=== PATIENT | female | born 1990 | race Caucasian/White ===

== ENCOUNTER → 2020-09-30 | Outpatient (CLI) | payer OTHER, SELFPAY ==
[2020-09-30 18:02] LABS: HEMOGLOBIN 12.9 g/dl (12.0-15.5); MEAN CORPUSCULAR HEMOGLOBIN 25.9 pg (27.0-33.0); MEAN CORPUSCULAR HGB CONC 30.7 g/dl (32.0-36.5); MEAN CORPUSCULAR VOLUME 84.3 fl (80.0-96.0); PLATELET COUNT, AUTOMATED 169 10^3/uL (150-450); RED BLOOD COUNT 4.98 10^6/uL (4.00-5.40); WHITE BLOOD COUNT 8.6 10^3/uL (4.0-10.0)
[2020-09-30 18:03] LABS: BASO % 0.4 % (0.0-1.0); EOS % 0.2 % (0.0-3.0); HEMATOCRIT 42.3 % (36.0-47.0); HEMOGLOBIN 13.4 g/dl (12.0-15.5); LYMPH # 2.9 10^3/uL (1.5-5.0); LYMPH % 34.6 % (24.0-44.0); MEAN CORPUSCULAR HGB CONC 31.7 g/dl (32.0-36.5); MEAN CORPUSCULAR VOLUME 85.1 fl (80.0-96.0); MONO # 0.4 10^3/uL (0.0-0.8); MONO % 4.8 % (0.0-5.0); NEUTROPHILS # 5.1 10^3/uL (1.5-8.5); NEUTROPHILS % 59.8 % (36.0-66.0); PLATELET COUNT, AUTOMATED 169 10^3/uL (150-450); RED BLOOD COUNT 4.97 10^6/uL (4.00-5.40); WHITE BLOOD COUNT 8.5 10^3/uL (4.0-10.0)
[2020-09-30 18:19] LABS: ALBUMIN 4.2 GM/DL (3.2-5.2); ALT/SGPT 41 U/L (12-78); BILIRUBIN,TOTAL 0.4 MG/DL (0.2-1.0); BLOOD UREA NITROGEN 14 MG/DL (7-18); CALCIUM LEVEL 8.5 MG/DL (8.5-10.1); CARBON DIOXIDE LEVEL 28 MEQ/L (21-32); CHLORIDE LEVEL 103 MEQ/L (98-107); CREATININE FOR GFR 1.11 MG/DL (0.55-1.30); GLOMERULAR FILTRATION RATE > 60.0 (>60); GLUCOSE, FASTING 87 MG/DL (70-100); SODIUM LEVEL 137 MEQ/L (136-145); TOTAL PROTEIN 7.7 GM/DL (6.4-8.2)
[2020-09-30 18:40] LABS: HEPATITIS B SURFACE ANTIGEN NEGATIVE (NEGATIVE)
[2020-09-30 18:50] LABS: AMORPHOUS SEDIMENT MODERATE (NEGATIVE); APPEARANCE, URINE TURBID (CLEAR); BACTERIA, URINE AUTO 1+ (NEGATIVE); BILIRUBIN, URINE AUTO NEGATIVE (NEGATIVE); BLOOD, URINE BLOOD 3+ (NEGATIVE); GLUCOSE, URINE (UA) AUTO NEGATIVE (NEGATIVE); KETONE, URINE AUTO TRACE mg/dL (NEGATIVE); LEUKOCYTE ESTERASE, URINE AUTO TRACE (NEGATIVE); MUCUS, URINE MODERATE (NEGATIVE); NITRITE, URINE AUTO POSITIVE (NEGATIVE); PROTEIN, URINE AUTO 1+ mg/dL (NEGATIVE); RBC, URINE AUTO 64 /HPF (0-3); SQUAMOUS EPITHELIAL CELL UR AU 0 /HPF (0-6); UROBILINOGEN, URINE AUTO 0.2 mg/dL (0.0-2.0); WBC, URINE AUTO 0 /HPF (0-3)
[2020-09-30 18:52] LABS: COLOR, URINE YELLOW (YELLOW)
[2020-09-30 19:08] LABS: HIV 1&2 SCREEN CENTAUR NEGATIVE (NEGATIVE)
[2020-09-30 19:21] LABS: HEPATITIS C VIRUS ABY INDEX > 11.0 INDEX (<0.8)
== END ==
LOC: M PLALAB 13:47
PROVIDERS: ATTEND Family Medicine
DX: Z02.2 Encounter for examination for admission to residential institution (principal); F11.10 Opioid abuse, uncomplicated

== ENCOUNTER → 2020-12-26 | Outpatient (CLI) | payer OTHER ==
--- NOTE | 2020-12-26 16:39 | REPMRS ---
Patient History The patient states she has not had a clinical breast exam in over a year. Family history of breast cancer at age 30 in mother, breast cancer at age 23 in maternal grandmother, breast cancer at age 45 in maternal aunt. No Hormone Replacement Therapy Digital Woman Screen Mammo: December 26, 2020 - Exam #: [id number] Bilateral MLO, CC, and XCCL view(s) were taken. Technologist: Lilia Lindo, Technologist No prior studies available for comparison. FINDINGS: The breast tissue is heterogeneously dense. This may lower the sensitivity of mammography. The Volpara volumetric breast density category is: C. There is a moderate amount of heterogeneously dense fibroglandular tissue which is fairly symmetric. There is no interval development of dominant mass, architectural distortion, or grouped microcalcification typical of malignancy. There has been no change in the appearance of the mammogram from the prior studies. 3-D tomosynthesis shows no additional findings. Assessment: BI-RADS/ACR category 1 mammogram. Negative Mammogram. Recommendation Breast MRI of both breasts in 6 months. Routine screening mammogram of both breasts in 1 year (for women over age 40). This patient's [facility] Lifetime Breast Cancer RIsk is estimated at 48.3 %. Annual screening Breast MRI scanniing is recommended for patient's whose lifetime risk assessment is over 20%. This mammogram was interpreted with the aid of an FDA-approved computer-aided dectection system. Electronically Signed By: Abhijeet Rodriguez MD 12/26/20 5709
== END ==
LOC: M WHC 13:56
PROVIDERS: ATTEND Physician Assistant Medical
DX: Z12.31 Encounter for screening mammogram for malignant neoplasm of breast (principal); Z80.3 Family history of malignant neoplasm of breast

== ENCOUNTER → 2021-01-03 | Outpatient (CLI) | payer OTHER ==
[2021-01-03 10:03] LABS: APPEARANCE, URINE CLEAR (CLEAR); BACTERIA, URINE AUTO NEGATIVE (NEGATIVE); BILIRUBIN, URINE AUTO NEGATIVE (NEGATIVE); BLOOD, URINE BLOOD NEGATIVE (NEGATIVE); COLOR, URINE YELLOW (YELLOW); GLUCOSE, URINE (UA) AUTO NEGATIVE (NEGATIVE); KETONE, URINE AUTO NEGATIVE (NEGATIVE); LEUKOCYTE ESTERASE, URINE AUTO TRACE (NEGATIVE); MUCUS, URINE SMALL (NEGATIVE); NITRITE, URINE AUTO POSITIVE (NEGATIVE); PROTEIN, URINE AUTO NEGATIVE (NEGATIVE); RBC, URINE AUTO 2 /HPF (0-3); SPECIFIC GRAVITY URINE AUTO 1.021 (1.002-1.035); SQUAMOUS EPITHELIAL CELL UR AU 0 /HPF (0-6); UROBILINOGEN, URINE AUTO 0.2 mg/dL (0.0-2.0); WBC, URINE AUTO 1 /HPF (0-3)
[2021-01-03 10:12] LABS: BASO % 0.7 % (0.0-1.0); EOS # 0.2 10^3/uL (0.0-0.5); EOS % 2.7 % (0.0-3.0); HEMATOCRIT 36.9 % (36.0-47.0); HEMOGLOBIN 11.6 g/dl (12.0-15.5); LYMPH # 2.2 10^3/uL (1.5-5.0); LYMPH % 37.5 % (24.0-44.0); MEAN CORPUSCULAR HEMOGLOBIN 26.9 pg (27.0-33.0); MEAN CORPUSCULAR HGB CONC 31.4 g/dl (32.0-36.5); MEAN CORPUSCULAR VOLUME 85.4 fl (80.0-96.0); MONO # 0.4 10^3/uL (0.0-0.8); MONO % 6.5 % (0.0-5.0); NEUTROPHILS # 3.1 10^3/uL (1.5-8.5); NEUTROPHILS % 52.3 % (36.0-66.0); PLATELET COUNT, AUTOMATED 205 10^3/uL (150-450); RED BLOOD COUNT 4.32 10^6/uL (4.00-5.40); WHITE BLOOD COUNT 5.8 10^3/uL (4.0-10.0)
[2021-01-03 10:26] LABS: ALBUMIN 3.7 GM/DL (3.2-5.2); ALT/SGPT 150 U/L (12-78); BILIRUBIN,TOTAL 0.2 MG/DL (0.2-1.0); BLOOD UREA NITROGEN 23 MG/DL (7-18); CALCIUM LEVEL 9.1 MG/DL (8.5-10.1); CARBON DIOXIDE LEVEL 29 MEQ/L (21-32); CHLORIDE LEVEL 102 MEQ/L (98-107); GLOMERULAR FILTRATION RATE > 60.0 (>60); GLUCOSE, FASTING 98 MG/DL (70-100); POTASSIUM SERUM 4.7 MEQ/L (3.5-5.1); SODIUM LEVEL 138 MEQ/L (136-145); TOTAL PROTEIN 7.1 GM/DL (6.4-8.2)
[2021-01-03 12:05] LABS: HEPATITIS B SURFACE ANTIGEN NEGATIVE (NEGATIVE)
[2021-01-03 12:33] LABS: HEPATITIS B CORE ANTIBODY IGM NEGATIVE (NEGATIVE)
[2021-01-03 12:35] LABS: HEPATITIS A ANTIBODY IGM NEGATIVE (NEGATIVE)
[2021-01-03 12:49] LABS: HEPATITIS C VIRUS ABY INDEX > 11.0 INDEX (<0.8)
== END ==
LOC: M LAB 09:15
PROVIDERS: ATTEND Physician Assistant Medical
DX: Z02.2 Encounter for examination for admission to residential institution (principal)

== ENCOUNTER 2021-01-26 13:08 | Emergency (ER) | payer OTHER ==
[~2021-01-26] VITALS: Ht 165.1 cm; Wt 94.5 kg
--- OUTSIDE RECORDS SUMMARY | 2021-01-26 13:16 | CCD ---
Author Organization Unknown Address [address] [place] [address] Phone [phone] Care Team Providers Care Market Editor Name Role Phone José Miguel Dior Unavailable Unavailable Allergies None recorded. Medications Name Status Start Date Stop Date amoxicillin 500 mg capsule Active Not a vailable cephalexin 500 mg capsule Active Not av ailable clindamycin HCl 150 mg capsule Active N ot available doxycycline hyclate 100 mg capsule Active Not available escitalopram 10 mg tablet Active Not av ailable ibuprofen 800 mg tablet Active Not avai lable Lidocaine Viscous 2 % mucosal solution Active Not available nicotine (polacrilex) 4 mg gum Active N ot available nicotine 21 mg/24 hr daily transdermal patch Active Not available ondansetron HCl 4 mg tablet Active Not available prazosin 1 mg capsule Active Not availa ble prednisone 20 mg tablet Active Not avai lable prochlorperazine maleate 5 mg tablet Active Not available Problems None recorded. Procedures None recorded. Results Lab Results None recorded. Past Encounters 11/30/2020 SARS-CoV-2 Vaccination José Miguel Dior MD: [address] [place] [address], Ph. Social History None recorded. Vaccine List Vaccine Type COVID-19, mRNA, LNP-S, PF, 100 mcg/0.5 m L dose 11/30/20200.5 mL Plan of Care Reminders Provider Appointments None recorded. Lab None recorded. Referral None recorded. Procedures None recorded. Surgeries None recorded. Imaging None recorded. Vitals None recorded.
--- OUTSIDE RECORDS SUMMARY | 2021-01-26 13:16 | CCD | Continuity of Care Document ---
Author Author Maria Elena CISNEROS Organization Unknown Address [address] [address] Phone [phone] Care Team Providers Care Licsw Name Role Phone JUNIOR CISNEROS AUTM [phone] Social History Type Date Description Comments Sex Unknown Results Test Acquired Date Facility Test Result H/L Range Note Ua Routine 01/03/[address] [address] [phone] Appearance, Urine CLEAR Normal Clear Color, Urine YELLOW Normal Yellow PH,Urine 5.0 units Normal 5.0-9.0 Specific [place] Urine Auto 1.021 Normal 1.002-1.035 Protein, Urine Auto NEGATIVE mg/dL Normal Negative Glucose, Urine (Ua) Auto NEGATIVE mg/dL Normal Negative Ketone, Urine Auto NEGATIVE mg/dL Normal Negative Urobilinogen, Urine Auto 0.2 mg/dL Normal 0.0-2.0 Bilirubin, Urine Auto NEGATIVE Normal Negative Nitrite, Urine Auto POSITIVE Normal Negative Leukocyte Esterase, Urine Auto TRACE High Negative Blood, Urine Blood NEGATIVE Normal Negative WBC, Urine Auto 1 /HPF Normal 0-3 RBC, Urine Auto 2 /HPF Normal 0-3 Bacteria, Urine Auto NEGATIVE Normal Negative Squamous Epithelial Cell Ur AU 0 /HPF Normal 0-6 Mucus, Urine SMALL Normal Negative Hyaline Cast, Urine Auto 0 /LPF Normal 0-1 CBC With Differential 01/03/[address] [address] [phone] White Blood Count 5.8 10 Normal 4.0-10.0 Red Blood Count 4.32 10 Normal 4.00-5.40 Hemoglobin 11.6 g/dL Low 12.0-15.5 Hematocrit 36.9 % Normal 36.0-47.0 Mean Corpuscular Volume 85.4 fl Normal 80.0-96.0 Mean Corpuscular Hemoglobin 26.9 pg Low 27.0-33.0 Mean Corpuscular HGB Conc 31.4 g/dL Low 32.0-36.5 Red Cell Distribution Width 14.0 % Normal 11.5-14.5 Platelet Count, Automated 205 10 Normal 150-450 Neutrophils % 52.3 % Normal 36.0-66.0 Lymph % 37.5 % Normal 24.0-44.0 [place] % 6.5 % High 0.0-5.0 Eos % 2.7 % Normal 0.0-3.0 Baso % 0.7 % Normal 0.0-1.0 Immature Granulocyte % 0.3 % Normal 0-3.0 Nucleated Red Blood Cell % 0.0 % Normal 0-0 Neutrophils # 3.1 10 Normal 1.5-8.5 Lymph # 2.2 10 Normal 1.5-5.0 [place] # 0.4 10 Normal 0.0-0.8 Eos # 0.2 10 Normal 0.0-0.5 Baso # 0.0 10 Normal 0.0-0.2 Comprehensive Metabolic Profil 01/03/[address] [address] [phone] Glucose, Fasting 98 mg/dL Normal 70-100 Blood Urea Nitrogen 23 mg/dL High 7-18 Creatinine For GFR 0.90 mg/dL Normal 0.55-1.30 Glomerular Filtration Rate > 60.0 Normal >60 1 Sodium Level 138 mEq/L Normal 136-145 Potassium Serum 4.7 mEq/L Normal 3.5-5.1 Chloride Level 102 mEq/L Normal 98-107 Carbon Dioxide Level 29 mEq/L Normal 21-32 Anion Gap 7 mEq/L Low 8-16 Calcium Level 9.1 mg/dL Normal 8.5-10.1 Ast/Sgot 84 U/L High 7-37 Alt/SGPT 150 U/L High 12-78 Alkaline Phosphatase 151 U/L High 45-117 Bilirubin,Total 0.2 mg/dL Normal 0.2-1.0 Total Protein 7.1 GM/DL Normal 6.4-8.2 Albumin 3.7 GM/DL Normal 3.2-5.2 Albumin/Globulin Ratio 1.1 Low 1.2-2.2 Hepatitis Profile 01/03/2021 [place] 1940539 [phone] Hepatitis C Virus Lilly Index > 11.0 INDEX High <0 .8 2 Hepatitis B Surface Antigen NEGATIVE Normal Negative Hepatitis B Core Antibody Igm NEGATIVE Normal Negative Hepatitis A Antibody Igm NEGATIVE Normal Negative 1 Units are mL/min/1.73 m2 Chronic Kidney Disease Staging per NKF: Stage I & II GFR >=60 Normal to Mildly Decreased Stage III GFR 30-59 Moderately Decreased Stage IV GFR 15-29 Severely Decreased Stage V GFR <15 Very Little GFR Left ESRD GFR <15 on MARKET RESEARCH SENIOR PROJECT MANAGER 2 This screening test for Hepa titis C Virus was above the 1.0 cutoff index value and will be sent to reference lab Laboratory [employer] [facility], [address] [place] [address] [place]. Jose Anaya. [phone] for Hep C RNA ROSA testing to confirm or exclude active Hepatitis C Virus infection. Screening test Positive samples with high index values (>11.0) usually (95%) confirm Positive, but <5 of every 100 samples with this result might be a false positive and Hep C RNA ROSA testing will aid in patient management. Encounters Type Date Location Provider Dx Diagnosis Office Visit 12/27/2020 10:30a [facility] ERICK Roca K29.00 Acute gastritis without blee isra J30.9 Allergic rhinitis, unspecifi ed F32.9 Major depressive disorder, s cherie episode, unspecified Office Visit 12/14/2020 2:00p [facility] ERICK Roca K29.00 Acute gastritis without blee ding F32.9 Major depressive disorder, s cherie episode, unspecified Office Visit 11/08/2020 12:00p [facility] ERICK Roca B37.3 Candidiasis of vulva and vag filiberto F32.9 Major depressive disorder, s cherie episode, unspecified Office Visit 11/03/2020 3:00p [facility] ERICK Roca L20.9 Atopic dermatitis, unspecifi ed F32.9 Major depressive disorder, s cherie episode, unspecified Assessments Date Code Description Provider 12/27/2020 K29.00 Acute gastritis without bleeding Junior Haywardki, PA 12/27/2020 J30.9 Allergic rhinitis, unspecified F nurys Miller Rekha, PA 12/27/2020 F32.9 Major depressive disorder, singl e episode, unspecified Junior G Rekha, PA 12/14/2020 K29.00 Acute gastritis without bleeding Junior Paul Rekha, PA 12/14/2020 F32.9 Major depressive disorder, singl e episode, unspecified Junior Paul Rekha, PA 11/08/2020 B37.3 Candidiasis of vulva and vagina Junior G Rekha, PA 11/08/2020 F32.9 Major depressive disorder, singl e episode, unspecified Junior Paul Rekha, PA 11/03/2020 L20.9 Atopic dermatitis, unspecified F nurys Miller Rekha, PA 11/03/2020 F32.9 Major depressive disorder, singl e episode, unspecified Junior Palu Rekha, PA 10/28/2020 J30.9 Allergic rhinitis, unspecified F nurys Miller Rekha, PA 10/28/2020 F32.9 Major depressive disorder, singl e episode, unspecified Junior G Rekha, PA 10/28/2020 F19.20 Other psychoactive substance dep endence, uncomplicated Junior Paul Rekha, PA 09/29/2020 F32.9 Major depressive disorder, singl e episode, unspecified Junior Paul Rekha, PA 09/29/2020 F19.20 Other psychoactive substance dep endence, uncomplicated Junior Paul Rekha, PA
--- OUTSIDE RECORDS SUMMARY | 2021-01-26 13:16 | CCD ---
Continuity of Care Document (CCD) Created on: 01/06/2021 Maria Elena Everett External Reference #: [id number] : 1990 Sex: Female Author Author Maria Elena DA SILVA Organization Unknown Address [address] [address] Phone [phone] Care Team Providers Care Cut Tobacco Bulker Name Role Phone JUNIOR DA SILVA AUTM [phone] Social History Type Date Description Comments Sex Unknown Results Test Acquired Date Facility Test Result H/L Range Note Ua Routine 01/03/[address] [address] [phone] Appearance, Urine CLEAR Normal Clear Color, Urine YELLOW Normal Yellow PH,Urine 5.0 units Normal 5.0-9.0 Specific [place] Urine Auto 1.021 Normal 1.002-1.035 Protein, Urine [...] /LPF Normal 0-1 CBC With Differential 01/03/[address] [address] [phone] White Blood Count 5.8 10 Normal 4.0-10.0 [...] 36.0-66.0 Lymph % 37.5 % Normal 24.0-44.0 [place] % 6.5 % High 0.0-5.0 Eos % 2.7 % Normal 0.0-3.0 Baso % 0.7 % Normal 0.0-1.0 Immature Granulocyte % 0.3 % Normal 0-3.0 Nucleated Red Blood Cell % 0.0 % Normal 0-0 Neutrophils # 3.1 10 Normal 1.5-8.5 Lymph # 2.2 10 Normal 1.5-5.0 [place] # 0.4 10 Normal 0.0-0.8 Eos # 0.2 10 Normal 0.0-0.5 Baso # 0.0 10 Normal 0.0-0.2 Comprehensive Metabolic Profil 01/03/[address] [address] [phone] Glucose, Fasting 98 mg/dL Normal 70-100 Blood [...] Ratio 1.1 Low 1.2-2.2 Hepatitis Profile 01/03/2021 [facility] [address] [place] [address] [phone] Hepatitis C Virus Lilly Index > 11.0 INDEX High <0 .8 2 Hepatitis B Surface Antigen NEGATIVE Normal Negative Hepatitis B Core Antibody Igm NEGATIVE Normal Negative Hepatitis A Antibody Igm NEGATIVE Normal Negative Laboratory test finding 01/03/2021 [facility] [address] [place] [address] [phone] HCV Rna Leona Qualitative Positive Abnormal Negative 3 1 Units are mL/min/1.73 m2 Chronic Kidney Disease Staging per NKF: Stage I & II GFR >=60 Normal to Mildly Decreased Stage III GFR 30-59 Moderately Decreased Stage IV GFR 15-29 Severely Decreased Stage V GFR <15 Very Little GFR Left ESRD GFR <15 on RUN LEAD 2 This screening test for Hepa titis C Virus was above the 1.0 cutoff index value and will be sent to reference lab Laboratory [employer] [facility], [address] [place] [address]. Alayna Anaya.Leonardo. [id number] for Hep C RNA LEONA testing to confirm or exclude active Hepatitis C Virus infection. Screening test Positive samples with high index values (>11.0) usually (95%) confirm Positive, but <5 of every 100 samples with this result might be a false positive and Hep C RNA LEONA testing will aid in patient management. 3 Positive: HCV RNA Detected Performed at: [facility] [address] [id number] Shellfish Sorter: Juan Law MD, Phone: [phone] Encounters Type Date Location Provider Dx Diagnosis Office Visit 12/27/2020 10:30a [facility] ERICK Roca K29.00 Acute gastritis without blee ding J30.9 Allergic rhinitis, unspecifi ed F32.9 Major depressive disorder, s cherie episode, unspecified Office Visit 12/14/2020 2:00p [facility] ERICK Roca K29.00 Acute gastritis without blee ding F32.9 Major depressive disorder, s cherie episode, unspecified Office Visit 11/08/2020 12:00p [facility] ERICK Roca B37.3 Candidiasis of vulva and vag filiberto F32.9 Major depressive disorder, s cherie episode, unspecified Office Visit 11/03/2020 3:00p [facility] Ashu Da Silva, PA L20.9 Atopic dermatitis, unspecifi ed F32.9 Major depressive disorder, s cherie episode, unspecified Assessments Date Code Description Provider 12/27/2020 K29.00 Acute gastritis without bleeding Junior Da Silva, PA 12/27/2020 J30.9 Allergic rhinitis, unspecified F rediftikhar Da Silva, PA 12/27/2020 F32.9 Major depressive disorder, singl e episode, unspecified Junior Paul Da Silva, PA 12/14/2020 K29.00 Acute gastritis without bleeding Junior Da Silva, PA 12/14/2020 F32.9 Major depressive disorder, singl e episode, unspecified Junior Da Silva, PA 11/08/2020 B37.3 Candidiasis of vulva and vagina Junior Da Silva, PA 11/08/2020 F32.9 Major depressive disorder, singl e episode, unspecified Junior Paul Da Silva, PA 11/03/2020 L20.9 Atopic dermatitis, unspecified F nurys Da Silva, PA 11/03/2020 F32.9 Major depressive disorder, singl e episode, unspecified Junior Paul Da Silva, PA 10/28/2020 J30.9 Allergic rhinitis, unspecified F rediftikhar Da Silva, PA 10/28/2020 F32.9 Major depressive disorder, singl e episode, unspecified Junior G Rekha, PA 10/28/2020 F19.20 Other psychoactive substance dep endence, uncomplicated Junior Paul Da Silva, PA 09/29/2020 F32.9 Major depressive disorder, singl e episode, unspecified Junior G Rekha, PA 09/29/2020 F19.20 Other psychoactive substance dep endence, uncomplicated Junior G Rekha, PA
--- OUTSIDE RECORDS SUMMARY | 2021-01-26 13:16 | CCD ---
Continuity of Care Document (CCD) Created on: 01/17/2021 Maria Elena Everett External Reference #: [id number] : 1990 Sex: Female Author Author Maria Elena DA SILVA Organization Unknown Address [address] [address] Phone [phone] Care Team Providers Care Storm Chaser Name Role Phone JUNIOR DA SILVA AUTM [phone] Social History Type Date Description Comments Sex Unknown Results Test Acquired Date Facility Test Result H/L Range Note Ua Routine 01/03/[address] [address] [phone] Appearance, Urine CLEAR Normal Clear Color, Urine YELLOW Normal Yellow PH,Urine 5.0 units Normal 5.0-9.0 Specific [place] Urine Auto 1.021 Normal 1.002-1.035 Protein, Urine [...] /LPF Normal 0-1 CBC With Differential 01/03/[address] [address] [phone] White Blood Count 5.8 10 Normal 4.0-10.0 [...] 36.0-66.0 Lymph % 37.5 % Normal 24.0-44.0 [place] % 6.5 % High 0.0-5.0 Eos % 2.7 % Normal 0.0-3.0 Baso % 0.7 % Normal 0.0-1.0 Immature Granulocyte % 0.3 % Normal 0-3.0 Nucleated Red Blood Cell % 0.0 % Normal 0-0 Neutrophils # 3.1 10 Normal 1.5-8.5 Lymph # 2.2 10 Normal 1.5-5.0 [place] # 0.4 10 Normal 0.0-0.8 Eos # 0.2 10 Normal 0.0-0.5 Baso # 0.0 10 Normal 0.0-0.2 Comprehensive Metabolic Profil 01/03/[address] [address] [phone] Glucose, Fasting 98 mg/dL Normal 70-100 Blood [...] Ratio 1.1 Low 1.2-2.2 Hepatitis Profile 01/03/2021 [facility] [address] [place] [address] [phone] Hepatitis C Virus Lilly Index > 11.0 INDEX High <0 .8 2 Hepatitis B Surface Antigen NEGATIVE Normal Negative Hepatitis B Core Antibody Igm NEGATIVE Normal Negative Hepatitis A Antibody Igm NEGATIVE Normal Negative Laboratory test finding 01/03/2021 [facility] [address] [place] [address] [phone] HCV Rna Leona Qualitative Positive Abnormal Negative 3 1 Units are mL/min/1.73 m2 Chronic Kidney Disease Staging per NKF: Stage I & II GFR >=60 Normal to Mildly Decreased Stage III GFR 30-59 Moderately Decreased Stage IV GFR 15-29 Severely Decreased Stage V GFR <15 Very Little GFR Left ESRD GFR <15 on CAN WASHER 2 This screening test for Hepa titis C Virus was above the 1.0 cutoff index value and will be sent to reference lab Laboratory [employer] [facility], [address] [place] [address]. Héctor, Alayna.Leonardo. [id number] for Hep C RNA LEONA testing to confirm or exclude active Hepatitis C Virus infection. Screening test Positive samples with high index values (>11.0) usually (95%) confirm Positive, but <5 of every 100 samples with this result might be a false positive and Hep C RNA LEONA testing will aid in patient management. 3 Positive: HCV RNA Detected Performed at: [facility] [address] [id number] Rig Builder: Juan Law MD, Phone: [phone] Encounters Type Date Location Provider Dx Diagnosis Office Visit 01/11/2021 12:15p [facility] ERICK Roca K29.00 Acute gastritis without blee isra F32.9 Major depressive disorder, s cherie episode, unspecified Office Visit 01/03/2021 12:15p [facility] ERICK Roca N39.0 Urinary tract infection, sit e not specified J06.9 Acute upper respiratory infe ction, unspecified Z11.52 Encounter for screening for Covid-19 Office Visit [facility]2020 [facility] episode, unspecified Assessments Date Code Description Provider 01/11/2021 K29.00 Acute gastritis without bleeding ERICK Solares 01/11/2021 F32.9 Major depressive disorder, singl e episode, unspecified Junior Da Silva, ERICK 01/03/2021 N39.0 Urinary tract infection, site no t specified ERICK Solares 01/03/2021 J06.9 Acute upper respiratory infectio n, unspecified ERICK Solares 01/03/2021 Z11.52 Encounter for screening for Covi d-19 Junior Da Silva, ERICK 12/27/2020 K29.00 Acute gastritis without bleeding ERICK Solares 12/27/2020 J30.9 Allergic rhinitis, unspecified F rediftikhar Da Silva, PA 12/27/2020 F32.9 Major depressive disorder, singl e episode, unspecified ERICK Solares 12/14/2020 K29.00 Acute gastritis without bleeding Junior Da Silva, ERICK 12/14/2020 F32.9 Major depressive disorder, singl e episode, unspecified Junior Da Silva PA 11/08/2020 B37.3 Candidiasis of vulva and vagina ERICK Solares 11/08/2020 F32.9 Major depressive disorder, singl e episode, unspecified Junior Da Silva, PA 11/03/2020 L20.9 Atopic dermatitis, unspecified F nurys Da Silva, PA 11/03/2020 F32.9 Major depressive disorder, singl e episode, unspecified Junior Da Silva, PA 10/28/2020 J30.9 Allergic rhinitis, unspecified F nurys Da Silva, PA 10/28/2020 F32.9 Major depressive disorder, singl e episode, unspecified Junior Da Silva, PA 10/28/2020 F19.20 Other psychoactive substance dep endence, uncomplicated Junior Da Silva, PA 09/29/2020 F32.9 Major depressive disorder, singl e episode, unspecified Junior Da Silva, PA 09/29/2020 F19.20 Other psychoactive substance dep endence, uncomplicated Junior Da Silva, PA
--- OUTSIDE RECORDS SUMMARY | 2021-01-26 13:16 | CCD | Continuity of Care Document ---
Author Author Maria Elena DA SILVA Organization Unknown Address [address] [place] [address] [address] [place] [address] Phone [phone] Care Team Providers Care Perforating Machine Operator Name Role Phone JUNIOR DA SILVA AUTM Social History Type Date Description Comments Sex Unknown Encounters Type Date Location Provider Dx Diagnosis [facility] episode, unspecified Assessments Date Code Description Provider 12/14/2020 K29.00 Acute gastritis without bleeding ERICK Solares 12/14/2020 F32.9 Major depressive disorder, singl e episode, unspecified ERICK Solares 11/08/2020 B37.3 Candidiasis of vulva and vagina ERICK Solares 11/08/2020 F32.9 Major depressive disorder, singl e episode, unspecified ERICK Solares 11/03/2020 L20.9 Atopic dermatitis, unspecified F ERICK Gibson 11/03/2020 F32.9 Major depressive disorder, singl e episode, unspecified ERICK Solares 10/28/2020 J30.9 Allergic rhinitis, unspecified F franciscoiftikhar Miller Rekha, PA 10/28/2020 F32.9 Major depressive disorder, singl e episode, unspecified Junior Da Silva, ERICK 10/28/2020 F19.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 09/29/2020 F32.9 Major depressive disorder, singl e episode, unspecified Junior Da Silva, ERICK 09/29/2020 F19.20 Other psychoactive substance dep endence, uncomplicated Junior Da Silva PA
--- OUTSIDE RECORDS SUMMARY | 2021-01-26 13:16 | CCD | Continuity of Care Document ---
Author Author Maria Elena DA SILVA Organization Unknown Address [address] [place] [address] [address] [place] [address] Phone [phone] Care Team Providers Care Night Warehouse Selector Name Role Phone JUNIOR DA SILVA AUTM Social History Type Date Description Comments Sex Unknown Encounters Type Date Location Provider Dx Diagnosis Office Visit 12/27/2020 10:30a [facility] ERICK Roca K29.00 Acute gastritis without blee ding J30.9 Allergic rhinitis, unspecifi ed F32.9 Major depressive disorder, s cherie episode, unspecified Office Visit 12/14/2020 2:00p [facility] ERICK Roca K29.00 Acute gastritis without blee ding F32.9 Major depressive disorder, s cherie episode, unspecified Office Visit 11/08/2020 12:00p [facility] ERICK Roca B37.3 Candidiasis of vulva and vag filiberto F32.9 Major depressive disorder, s cherie episode, unspecified Office Visit 11/03/2020 3:00p [facility] ERICK Roca L20.9 Atopic dermatitis, unspecifi ed F32.9 Major depressive disorder, s cherie episode, unspecified Assessments Date Code Description Provider 12/27/2020 K29.00 Acute gastritis without bleeding ERICK Solares 12/27/2020 J30.9 Allergic rhinitis, unspecified F ERICK Gibson 12/27/2020 F32.9 Major depressive disorder, singl e [...]
--- OUTSIDE RECORDS SUMMARY | 2021-01-26 13:16 | CCD | Continuity of Care Document ---
Author Author Maria Elena DA SILVA Organization Unknown Address [address] [address] Phone [phone] Care Team Providers Care Assistant Manager Retail Name Role Phone JUNIOR DA SILVA AUTM [phone] Social History Type Date Description Comments Sex Unknown Results Test Acquired Date Facility Test Result H/L Range Note Ua Routine 01/03/[address] [address] [phone] Appearance, Urine CLEAR Normal Clear Color, Urine YELLOW Normal Yellow PH,Urine 5.0 units Normal 5.0-9.0 Specific [place] Urine Auto 1.021 Normal 1.002-1.035 Protein, Urine [...] /LPF Normal 0-1 CBC With Differential 01/03/[address] [address] [phone] White Blood Count 5.8 10 Normal 4.0-10.0 [...] 36.0-66.0 Lymph % 37.5 % Normal 24.0-44.0 [place] % 6.5 % High 0.0-5.0 Eos % 2.7 % Normal 0.0-3.0 Baso % 0.7 % Normal 0.0-1.0 Immature Granulocyte % 0.3 % Normal 0-3.0 Nucleated Red Blood Cell % 0.0 % Normal 0-0 Neutrophils # 3.1 10 Normal 1.5-8.5 Lymph # 2.2 10 Normal 1.5-5.0 [place] # 0.4 10 Normal 0.0-0.8 Eos # 0.2 10 Normal 0.0-0.5 Baso # 0.0 10 Normal 0.0-0.2 Comprehensive Metabolic Profil 01/03/[address] [address] [phone] Glucose, Fasting 98 mg/dL Normal 70-100 Blood [...] Ratio 1.1 Low 1.2-2.2 Hepatitis Profile 01/03/2021 [facility] [address] [place] [address] [phone] Hepatitis C Virus Lilly Index > 11.0 INDEX High <0 .8 2 Hepatitis B Surface Antigen NEGATIVE Normal Negative Hepatitis B Core Antibody Igm NEGATIVE Normal Negative Hepatitis A Antibody Igm NEGATIVE Normal Negative Laboratory test finding 01/03/2021 [facility] [address] [place] [address] [phone] HCV Rna Leona Qualitative Positive Abnormal Negative 3 1 Units are mL/min/1.73 m2 Chronic Kidney Disease Staging per NKF: Stage I & II GFR >=60 Normal to Mildly Decreased Stage III GFR 30-59 Moderately Decreased Stage IV GFR 15-29 Severely Decreased Stage V GFR <15 Very Little GFR Left ESRD GFR <15 on SEARCHLIGHT OPERATOR 2 This screening test for Hepa titis C Virus was above the 1.0 cutoff index value and will be sent to reference lab Laboratory [place] [facility], [address] [place] [address]. Héctor, Alayna.Leonardo. [address] for Hep C RNA LEONA testing to confirm or exclude active Hepatitis C Virus infection. Screening test Positive samples with high index values (>11.0) usually (95%) confirm Positive, but <5 of every 100 samples with this result might be a false positive and Hep C RNA LEONA testing will aid in patient management. 3 Positive: HCV RNA Detected Performed at: [facility] [id number] [address] And Former: Juan Law MD, Phone: [phone] Encounters Type Date Location Provider Dx Diagnosis Office Visit 01/03/2021 12:15p [facility] ERICK Roca N39.0 Urinary tract infection, sit e not specified J06.9 Acute upper respiratory infe ction, unspecified Z11.52 Encounter for screening for Covid-19 Office Visit 12/27/2020 10:30a [facility] 11/03/2020 3:00p [facility] ERICK Roca L20.9 Atopic dermatitis, unspecifi ed F32.9 Major depressive disorder, s cherie episode, unspecified Assessments Date Code Description Provider 01/03/2021 N39.0 Urinary tract infection, site no t specified ERICK Solares 01/03/2021 J06.9 Acute upper respiratory infectio n, unspecified ERICK Solares 01/03/2021 Z11.52 Encounter for screening for Covi d-19 ERICK Solares 12/27/2020 K29.00 Acute gastritis without bleeding Junior Da Silva, PA 12/27/2020 J30.9 Allergic rhinitis, unspecified F nurys Da Silva, PA 12/27/2020 F32.9 Major depressive disorder, singl e episode, unspecified Junior Da Silva, PA 12/14/2020 K29.00 Acute gastritis without bleeding Junior Da Silva, PA 12/14/2020 F32.9 Major depressive disorder, singl e episode, unspecified Junior Da Silva, PA 11/08/2020 B37.3 Candidiasis of vulva and vagina Junior Da Silva PA 11/08/2020 F32.9 Major depressive disorder, singl e episode, unspecified Junior Da Silva, PA 11/03/2020 L20.9 Atopic dermatitis, unspecified F nurys Da Silva, PA 11/03/2020 F32.9 Major depressive disorder, singl e episode, unspecified Junior Da Silva, PA 10/28/2020 J30.9 Allergic rhinitis, unspecified F nurys Da Silva, PA 10/28/2020 F32.9 Major depressive disorder, singl e episode, unspecified ERICK Solares 10/28/2020 F19.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
--- OUTSIDE RECORDS SUMMARY | 2021-01-26 13:16 | CCD ---
Author Organization Unknown Address [address] [place] [address] Phone [phone] Care Team Providers Care Greenhouse Staff Name Role Phone José Miguel Dior Unavailable [...] SARS-CoV-2 Vaccination José Miguel Dior MD: [address] [place] [address], Ph. Social History None recorded. Vaccine List Vaccine Type COVID-19, mRNA, LNP-S, PF, 100 mcg/0.5 m L dose 11/30/20200.5 mL Plan of Care Reminders Provider Appointments None recorded. Lab None recorded. Referral None recorded. Procedures None recorded. Surgeries None recorded. Imaging None recorded. Vitals None recorded.
--- OUTSIDE RECORDS SUMMARY | 2021-01-26 13:16 | CCD | Continuity of Care Document ---
Author Author Maria Elena CISNEROS Organization Unknown Address [address] [address] Phone [phone] Care Team Providers Care Grape Pruner Name Role Phone JUNIOR CISNEROS AUTM Social History Type Date Description Comments Sex Unknown Results Test Acquired Date Facility Test Result H/L Range Note Ua Routine 01/03/[address] [address] [phone] Appearance, Urine CLEAR Normal Clear Color, Urine YELLOW Normal Yellow PH,Urine 5.0 units Normal 5.0-9.0 Specific [place] Urine Auto 1.021 Normal 1.002-1.035 Protein, Urine [...] Normal 0-1 CBC With Differential 01/03/[address] [address] [phone] White Blood Count 5.8 10 Normal 4.0-10.0 [...] 36.0-66.0 Lymph % 37.5 % Normal 24.0-44.0 [place] % 6.5 % High 0.0-5.0 Eos % 2.7 % Normal 0.0-3.0 Baso % 0.7 % Normal 0.0-1.0 Immature Granulocyte % 0.3 % Normal 0-3.0 Nucleated Red Blood Cell % 0.0 % Normal 0-0 Neutrophils # 3.1 10 Normal 1.5-8.5 Lymph # 2.2 10 Normal 1.5-5.0 [place] # 0.4 10 Normal 0.0-0.8 Eos # 0.2 10 Normal 0.0-0.5 Baso # 0.0 10 Normal 0.0-0.2 Comprehensive Metabolic Profil 01/03/[address] [address] [phone] Glucose, Fasting 98 mg/dL Normal 70-100 Blood [...] Ratio 1.1 Low 1.2-2.2 Hepatitis Profile 01/03/2021 [place] [id number] [phone] Hepatitis C Virus Lilly Index > 11.0 [...] Little GFR Left ESRD GFR <15 on OXIDIZED FINISH PLATER 2 This screening test for Hepa titis C Virus was above the 1.0 cutoff index value and will be sent to reference lab Laboratory [place] [facility], [address] [place] [address] [place]. [place]. [id number] for Hep C RNA ROSA testing to [...] Provider Dx Diagnosis Office Visit 12/27/2020 10:30a [facility] ERICK Roca K29.00 Acute gastritis without blee isra J30.9 Allergic rhinitis, unspecifi ed F32.9 Major depressive disorder, s cherie episode, unspecified Office Visit 12/14/2020 2:00p [facility] ERICK Roca K29.00 Acute gastritis without blee ding F32.9 Major depressive disorder, s cherie episode, unspecified Office Visit 11/08/2020 12:00p [facility] ERICK Roca B37.3 Candidiasis of vulva and vag filiberto F32.9 Major depressive disorder, s cherie episode, unspecified Office Visit 11/03/2020 3:00p [facility] ERICK Roca L20.9 Atopic dermatitis, unspecifi ed F32.9 Major depressive disorder, s cherie episode, unspecified Assessments Date Code Description Provider 12/27/2020 K29.00 Acute gastritis without bleeding Junior Haywradki, PA 12/27/2020 J30.9 Allergic rhinitis, unspecified F [...] e episode, unspecified Junior Paul Rekha, PA 10/28/2020 J30.9 Allergic rhinitis, unspecified [...]
--- OUTSIDE RECORDS SUMMARY | 2021-01-26 13:16 | CCD ---
Author Organization Unknown Address [address] [place] [address] Phone [phone] Care Team Providers Care Spinning Doffer Name Role Phone José Miguel Dior Unavailable Unavailable Allergies None recorded. Medications Name Status Start Date Stop Date amoxicillin 500 mg capsule Active Not a vailable amoxicillin 500 mg tablet Active Not av ailable cefdinir 300 mg capsule Active Not avai lable cephalexin 500 mg capsule Active Not av ailable cetirizine 10 mg tablet Active Not avai lable clindamycin HCl 150 mg capsule Active N ot available doxycycline hyclate 100 mg capsule Active Not available escitalopram 10 mg tablet Active Not av ailable fluconazole 150 mg tablet Active Not av ailable ibuprofen 600 mg tablet Active Not avai lable ibuprofen 800 mg tablet Active Not avai lable Lidocaine Viscous 2 % mucosal solution Active Not available mirtazapine 15 mg tablet Active Not raffy ilable nicotine (polacrilex) 4 mg gum Active N ot available nicotine 21 mg/24 hr daily transdermal patch Active Not available nitrofurantoin monohydrate/macrocrystals 100 mg capsule Active Not available ondansetron HCl 4 mg tablet Active Not available phenazopyridine 100 mg tablet Active No t available prazosin 1 mg capsule Active Not availa ble prazosin 2 mg capsule Active Not availa ble prednisone 20 mg tablet Active Not avai lable prochlorperazine maleate 5 mg tablet Active Not available senna 8.6 mg tablet Active Not availabl e venlafaxine ER 150 mg capsule,extended release 24 hr Active Not available venlafaxine ER 75 mg capsule,extended release 24 hr Active Not available Problems None recorded. Procedures None recorded. Results Lab Results None recorded. Past Encounters 12/29/2020 SARS-CoV-2 Vaccination TAMERA Mensah-C: [address] [place] [address], Ph. 11/30/2020 SARS-CoV-2 Vaccination José Miguel Dior MD: [address] [place] [address], Ph. Social History None recorded. Vaccine List Vaccine Type COVID-19, mRNA, LNP-S, PF, 100 mcg/0.5 m L dose .5 mL .5 mL Plan of Care Reminders Provider Appointments None recorded. Lab None recorded. Referral None recorded. Procedures None recorded. Surgeries None recorded. Imaging None recorded. Vitals None recorded.
--- OUTSIDE RECORDS SUMMARY | 2021-01-26 13:17 | CCD ---
Author Author [facility] Organization [facility] Address Unknown Phone Unavailable Care Team Providers Care French Pastry Cook Name Role Phone Lee, Osseo Nathalie Unavailable Unavailable Lee, Osseo Nathalie Unavailable Unavailable Lee, Osseo Nathalie Unavailable Unavailable Lee, Osseo Nathalie Unavailable Unavailable Lee, Osseo Nathalie Unavailable Unavailable Lee, Osseo Nathalie Unavailable Unavailable Lee, Osseo Nathalie Unavailable Unavailable Lee, Osseo Nathalie Unavailable Unavailable Lee, Osseo Nathalie Unavailable Unavailable Lee, Osseo Nathalie Unavailable Unavailable Devyn Dior MD Unavailable Unavailable Devyn Dior MD Unavailable Unavailable Devyn Dior MD Unavailable Unavailable Devyn Dior MD Unavailable Unavailable Devyn Dior MD Unavailable Unavailable Devyn Dior MD Unavailable Unavailable Devyn Dior MD Unavailable Unavailable Devyn Dior MD Unavailable Unavailable Devyn Dior MD Unavailable Unavailable Devyn Dior MD Unavailable Unavailable Devyn Dior MD Unavailable Unavailable Devyn Dior MD Unavailable Unavailable Devyn Dior MD Unavailable Unavailable Devyn Dior MD Unavailable Unavailable Devyn Dior MD Unavailable Unavailable Devyn Dior MD Unavailable Unavailable Devyn Dior MD Unavailable Unavailable Devyn Dior MD Unavailable Unavailable Devyn Dior MD Unavailable Unavailable Devyn Dior MD Unavailable Unavailable Devyn Dior MD Unavailable Unavailable Devyn Dior MD Unavailable Unavailable Devyn Dior MD Unavailable Unavailable Devyn Dior MD Unavailable Unavailable Devyn Dior MD Unavailable Unavailable Devyn Dior MD Unavailable Unavailable Devyn Dior MD Unavailable Unavailable Devyn Dior MD Unavailable Unavailable Devyn Dior MD Unavailable Unavailable Devyn Dior MD Unavailable Unavailable Devyn Dior MD Unavailable Unavailable Devyn Dior MD Unavailable Unavailable Devyn Dior MD Unavailable Unavailable Devyn Dior MD Unavailable Unavailable Devyn Dior MD Unavailable Unavailable Devyn Dior MD Unavailable Unavailable Devyn Dior MD Unavailable Unavailable Devyn Dior MD Unavailable Unavailable Devyn Dior MD Unavailable Unavailable eDvyn Dior MD Unavailable Unavailable Devyn Dior MD Unavailable Unavailable Devyn Dior MD Unavailable Unavailable Devyn Dior MD Unavailable Unavailable Devyn Dior MD Unavailable Unavailable Devyn Dior MD Unavailable Unavailable Devyn Dior MD Unavailable Unavailable Devyn Dior MD Unavailable Unavailable Devyn Dior MD Unavailable Unavailable Devyn Dior MD Unavailable Unavailable Devyn Dior MD Unavailable Unavailable Devyn Dior MD Unavailable Unavailable Devyn Dior MD Unavailable Unavailable Devyn Dior MD Unavailable Unavailable Devyn Dior MD Unavailable Unavailable Devyn Dior MD Unavailable Unavailable Devyn Dior MD Unavailable Unavailable Devyn Dior MD Unavailable Unavailable Devyn Dior MD Unavailable Unavailable Devyn Dior MD Unavailable Unavailable Devyn Dior MD Unavailable Unavailable Devyn Dior MD Unavailable Unavailable Devyn Dior MD Unavailable Unavailable Devyn Dior MD Unavailable Unavailable Devyn Dior MD Unavailable Unavailable Devyn Dior MD Unavailable Unavailable Devyn Dior MD Unavailable Unavailable Devyn Dior MD Unavailable Unavailable Devyn Dior MD Unavailable Unavailable Devyn Dior MD Unavailable Unavailable Devyn Dior MD Unavailable Unavailable Devyn Dior MD Unavailable Unavailable Devyn Dior MD Unavailable Unavailable Devyn Dior MD Unavailable Unavailable Devyn Dior MD Unavailable Unavailable Devyn Dior MD Unavailable Unavailable Devyn Dior MD Unavailable Unavailable Devyn Dior MD Unavailable Unavailable Devyn Dior MD Unavailable Unavailable Devyn Dior MD Unavailable Unavailable Devyn Dior MD Unavailable Unavailable Devyn Dior MD Unavailable Unavailable Devyn Dior MD Unavailable Unavailable Devyn Dior MD Unavailable Unavailable Devyn Dior MD Unavailable Unavailable Devyn Dior MD Unavailable Unavailable Devyn Dior MD Unavailable Unavailable Devyn Dior MD Unavailable Unavailable Devyn Dior MD Unavailable Unavailable Devyn Dior MD Unavailable Unavailable BAIN, A NATHALIA DO Unavailable Unavailable BAIN, A NATHALIA DO Unavailable Unavailable BAIN, A NATHALIA DO Unavailable Unavailable BAIN, A NATHALIA DO Unavailable Unavailable BAIN, A NATHALIA DO Unavailable Unavailable BAIN, A NATHALIA DO Unavailable Unavailable BAIN, A NATHALIA DO Unavailable Unavailable BAIN, A NATHALIA DO Unavailable Unavailable BAIN, A NATHALIA DO Unavailable Unavailable BAIN, A NATHALIA DO Unavailable Unavailable BAIN, A NATHALIA DO Unavailable Unavailable BAIN, A NATHALIA DO Unavailable Unavailable Andrews, Marko Unavailable Unavailable Andrews, Marko Unavailable Unavailable Andrews, Marko Unavailable Unavailable Andrews, Marko Unavailable Unavailable Andrews, Marko Unavailable Unavailable Andrews, Marko Unavailable Unavailable Andrews, Marko Unavailable Unavailable TONTARSKI, G SUDHEER PA Unavailable Unavailable TONTARSKI, G SUDHEER PA Unavailable Unavailable TONTARSKI, G SUDHEER PA Unavailable Unavailable TONTARSKI, G SUDHEER PA Unavailable Unavailable TONTARSKI, G SUDHEER PA Unavailable Unavailable TONTARSKI, G SUDHEER PA Unavailable Unavailable TONTARSKI, G SUDHEER PA Unavailable Unavailable TONTARSKI, G USDHEER PA Unavailable Unavailable TONTARSKI, G SUDHEER PA Unavailable Unavailable TONTARSKI, G SUDHEER PA Unavailable Unavailable TONTARSKI, G SUDHEER PA Unavailable Unavailable TONTARSKI, G SUDHEER PA Unavailable Unavailable TONTARSKI, G SUDHEER PA Unavailable Unavailable TONTARSKI, G SUDHEER PA Unavailable Unavailable TONTARSKI, G SUDHEER PA Unavailable Unavailable TONTARSKI, G SUDHEER PA Unavailable Unavailable TONTARSKI, G SUDHEER PA Unavailable Unavailable TONTARSKI, G SUDHEER PA Unavailable Unavailable TONTARSKI, G SUDHEER PA Unavailable Unavailable TONTARSKI, G SUDHEER PA Unavailable Unavailable TONTARSKI, G SUDHEER PA Unavailable Unavailable TONTARSKI, G SUDHEER PA Unavailable Unavailable TONTARSKI, G SUDHEER PA Unavailable Unavailable TONTARSKI, G SUDHEER PA Unavailable Unavailable TONTARSKI, G SUDHEER PA Unavailable Unavailable TONTARSKI, G SUDHEER PA Unavailable Unavailable TONTARSKI, G SUDHEER PA Unavailable Unavailable TONTARSKI, G SUDHEER PA Unavailable Unavailable TONTARSKI, G SUDHEER PA Unavailable Unavailable TONTARSKI, G SUDHEER PA Unavailable Unavailable TONTARSKI, G SUDHEER PA Unavailable Unavailable TONTARSKI, G SUDHEER PA Unavailable Unavailable TONTARSKI, G SUDHEER PA Unavailable Unavailable TONTARSKI, G SUDHEER PA Unavailable Unavailable TONTARSKI, G SUDHEER PA Unavailable Unavailable TONTARSKI, G SUDHEER PA Unavailable Unavailable TONTARSKI, G SUDHEER PA Unavailable Unavailable TONTARSKI, G SUDHEER PA Unavailable Unavailable TONTARSKI, G SUDHEER PA Unavailable Unavailable TONTARSKI, G SUDHEER PA Unavailable Unavailable TONTARSKI, G SUDHEER PA Unavailable Unavailable TONTARSKI, G SUDHEER PA Unavailable Unavailable TONTARSKI, G SUDHEER PA Unavailable Unavailable TONTARSKI, G SUDHEER PA Unavailable Unavailable TONTARSKI, G SUDHEER PA Unavailable Unavailable TONTARSKI, G SUDHEER PA Unavailable Unavailable TONTARSKI, G SUDHEER PA Unavailable Unavailable TONTARSKI, G SUDHEER PA Unavailable Unavailable Alexis, P Eliu DO Unavailable Unavailable Alexis, P Eliu DO Unavailable Unavailable Alexis, P Eliu DO Unavailable Unavailable Alexis, P Eliu DO Unavailable Unavailable Alexis, P Eliu DO Unavailable Unavailable Alexis, P Eliu DO Unavailable Unavailable Alexis, P Eliu DO Unavailable Unavailable Alexis, P Eliu DO Unavailable Unavailable Alexis, P Eliu DO Unavailable Unavailable Alexis, P Eliu DO Unavailable Unavailable Alexis, P Eliu DO Unavailable Unavailable Alexis, P Eliu DO Unavailable Unavailable Alexis, P Eliu DO Unavailable Unavailable Alexis, P Eliu DO Unavailable Unavailable Alexis, P Eliu DO Unavailable Unavailable Alexis, P Eliu DO Unavailable Unavailable Alexis, P Eliu DO Unavailable Unavailable Alexis, P Eliu DO Unavailable Unavailable Alexis, P Eliu DO Unavailable Unavailable Alexis, P Eliu DO Unavailable Unavailable Alexis, P Eliu DO Unavailable Unavailable Alexis, P Eliu DO Unavailable Unavailable Alexis, P Eliu DO Unavailable Unavailable Alexis, P Eliu DO Unavailable Unavailable Alexis, P Eliu DO Unavailable Unavailable Alexis, P Eliu DO Unavailable Unavailable Alxeis, P Eliu DO Unavailable Unavailable Alexis, P Eliu DO Unavailable Unavailable Alexis, P Eliu DO Unavailable Unavailable Alexis, P Eliu DO Unavailable Unavailable Alexis, P Eliu DO Unavailable Unavailable Alexis, P Eliu DO Unavailable Unavailable Alexis, P Eliu DO Unavailable Unavailable Alexis, P Eliu DO Unavailable Unavailable Alexis, P Eliu DO Unavailable Unavailable Alexis, P Eliu DO Unavailable Unavailable Aelxis, P Eliu DO Unavailable Unavailable Alexis, P Eliu DO Unavailable Unavailable Alexis, P Eliu DO Unavailable Unavailable Alexis, P Eliu DO Unavailable Unavailable Alexis, P Eliu DO Unavailable Unavailable Alexis, P Eliu DO Unavailable Unavailable Alexis, P Leiu DO Unavailable Unavailable Alexis, P Eliu DO Unavailable Unavailable Alexis, P Eliu DO Unavailable Unavailable Alexis, P Eliu DO Unavailable Unavailable Alexis, P Eliu DO Unavailable Unavailable Alexis, P Eliu DO Unavailable Unavailable Alexis, P Eliu DO Unavailable Unavailable Alexis, P Eliu DO Unavailable Unavailable Alexis, P Eliu DO Unavailable Unavailable Alexis, P Eliu DO Unavailable Unavailable Alexis, P Eliu DO Unavailable Unavailable Alexis, P Eliu DO Unavailable Unavailable Alexis, P Eliu DO Unavailable Unavailable Alexis, P Eliu DO Unavailable Unavailable Alexis, P Eliu DO Unavailable Unavailable Alexis, P Eliu DO Unavailable Unavailable Alexis, P Eliu DO Unavailable Unavailable Alexis, P Eliu DO Unavailable Unavailable Alexis, P Eliu DO Unavailable Unavailable Alexis, P Eliu DO Unavailable Unavailable Alexis, P Eliu DO Unavailable Unavailable Alexis, P Eliu DO Unavailable Unavailable Alexis, P Eliu DO Unavailable Unavailable Alexis, P Eliu DO Unavailable Unavailable Alexis, P Eliu DO Unavailable Unavailable Alexis, P Eliu DO Unavailable Unavailable Alexis, P Eliu DO Unavailable Unavailable Alexis, P Eliu DO Unavailable Unavailable Alexis, P Eliu DO Unavailable Unavailable Alexis, P Eliu DO Unavailable Unavailable Alexis, P Eliu DO Unavailable Unavailable Alexis, P Eliu DO Unavailable Unavailable Re-disclosure Warning The records that you are about to access may contain information from federally-assisted alcohol or drug abuse programs. If such information is present, then the following federally mandated warning applies: This information has been disclosed to you from records protected by federal confidentiality rules (42 CFR part 2). The federal rules prohibit you from making any further disclosure of this information unless further disclosure is expressly permitted by the written consent of the person to whom it pertains or as otherwise permitted by 42 CFR part 2. A general authorization for the release of medical or other information is NOT sufficient for this purpose. The Federal rules restrict any use of the information to criminally investigate or prosecute any alcohol or drug abuse patient.The records that you are about to access may contain highly sensitive health information, the redisclosure of which is protected by Article 27-F of the [facility] Public Health law. If you continue you may have access to information: Regarding HIV / AIDS; Provided by facilities licensed or operated by the [facility] Office of Mental Health; or Provided by the [facility] Office for People With Developmental Disabilities. If such information is present, then the following [facility] mandated warning applies: This information has been disclosed to you from confidential records which are protected by state law. State law prohibits you from making any further disclosure of this information without the specific written consent of the person to whom it pertains, or as otherwise permitted by law. Any unauthorized further disclosure in violation of state law may result in a fine or senior living sentence or both. A general authorization for the release of medical or other information is NOT sufficient authorization for further disc losure. Allergies and Adverse Reactions Type Description Substance Reaction Status Data Source(s ) Drug allergy No Known Allergies No Known Allergies [facility] Allergy to substance Allergy to substance Allergy to substance [facility] ([facility]) Allergy to substance Allergy to substance Allergy to substance [facility] ([facility]) Allergy to substance Allergy to substance Allergy to substance [facility] ([facility]) Family History Family Member Name Family Member Gender Family Member Status Date o f Status Description Data Source(s) Unknown Condition [facility] Unknown Condition [facility] Unknown Condition [facility] Unknown Condition [facility] Unknown Condition [facility] Encounters Encounter Providers Location Date Indications Data Source(s ) Outpatient Attender: SUDHEER seth 01/11/2021 11:15:00 AM EST [facility] ([facility] Bravo [facility]) Outpatient Attender: SUDHEER seth 01/03/2021 11:15:00 AM EST [facility] ([facility]ravo [facility]) Nathalie Lee, SENIOR APPLICATIONS DEVELOPER-C: [address] [place] [phone], Ph. Attender: Nathalie Lee [facility] 12/29/2020 12:00:00 AM EST [facility] ([facility]) Outpatient Attender: SUDHEER SUAREZ [facility] 12/27/2020 09:30:00 AM EST [facility] ([facility]ravo [facility]) Outpatient Attender: SUDHEER SUAREZ [facility] 12/14/2020 01:00:00 PM EST [facility] ([facility] Bravo MD) José Miguel Dior MD: [address] [place] [phone], Ph. Attender: José Miguel Dior MD [facility] 11/30/2020 12:00:00 AM EST [facility] ([facility]) José Miguel Dior MD: [address] [place] [phone], Ph. Attender: José Miguel Dior MD [facility] 11/30/2020 12:00:00 AM EST [facility] ([facility]) José Miguel Dior MD: [address] [place] [phone], Ph. Attender: José Miguel Dior MD [facility] 11/30/2020 12:00:00 AM EST [facility] ([facility]) Outpatient Attender: SUDHEER SUAREZ [facility] 11/08/2020 11:00:00 AM EST [facility] ([facility]ravo [facility]) Outpatient Attender: SUDHEER SUAREZ [facility] 11/03/2020 02:00:00 PM EST [facility] ([facility]ravo [facility]) Emergency Attender: Eliu Espinoza DO 2019 07:23:00 PM EDT - 04/11/2020 08:29:00 PM EDT [facility]-Vomiting sever headache [facility]-Vomiting sever headache Patient discharged. Emergency Attender: NATHALIA BAIN DO 12/28 11:12:00 AM EST - 12/28/2019 12:50:00 PM EST [facility]/ hard to swallow, sore throat,hurts to urina [facility]/ hard to swallow, sore throat,hurt s to urina Patient discharged. Emergency Attender: Marko Andrews 12/24/2019 09:59:00 AM EST - 12/24/2019 10:57:00 AM EST [facility]/Headach,sore throat,bodyaches,fever [facility]/Headach,sore throat,bodyaches,feve r Patient discharged. Immunizations Vaccine Date Status Description Data Source(s) COVID-19, mRNA, LNP-S, PF, 100 mcg/0.5 mL dose 12/29/2020 09 :29:39 AM EST completed .5 mL [facility] ([facility]) COVID-19, mRNA, LNP-S, PF, 100 mcg/0.5 mL dose 11/30/2020 03 :52:50 PM EST completed .5 mL [facility] ([facility]) COVID-19, mRNA, LNP-S, PF, 100 mcg/0.5 mL dose 11/30/2020 03 :52:50 PM EST completed .5 mL [facility] ([facility]) COVID-19, mRNA, LNP-S, PF, 100 mcg/0.5 mL dose 11/30/2020 03 :52:50 PM EST completed .5 mL [facility] ([facility]) Medications Medication Brand Name Start Date Product Form Dose Route Admi nistrative Instructions Pharmacy Instructions Status Indications Reaction Description Data Source(s) Prochlorperazine 5 MG Oral Tablet [Compazine] Prochlor perazine Maleate Prochlorperazine Maleate 04/11/2020 08:21:50 PM EDT TABLET 5 MG ORAL [facility] Phenaz[facility]ine [facility]ide 200 MG Oral Tablet Phenazopyri dine 12/28/2019 12:39:16 PM EST TABLET 200 MG ORAL [facility] Phenazopyridine hydrochloride 200 MG Oral Tablet Phenazopyri dine 12/28/2019 12:39:00 PM EST TABLET 200 MG ORAL active [facility] Lidocaine Hydrochloride 20 MG/ML Mucous Membrane Topic al Solution Lidocaine Hcl Lidocaine Hcl 12/28/2019 12:38:58 PM EST SOLUTION 5 ML MUCOUS MEMBRANE completed [facility] Cephalexin 500 MG Oral Capsule [Keflex] Cephalexin 12/28/19 12:38:50 PM EST CAPSULE 500 MG ORAL completed [facility] Lidocaine Hydrochloride 20 MG/ML Mucous Membrane Topic al Solution Lidocaine Hcl Lidocaine Hcl 12/28/2019 12:38:00 PM EST SOLUTION 5 ML MUCOUS MEMBRANE active [facility] Cephalexin 500 MG Oral Capsule [Keflex] Cephalexin 12/28/19 12:38:00 PM EST CAPSULE 500 MG ORAL active [facility] Hydrochloride 5 MG Oral Tablet Methadone 11:30:50 AM EST TABLET 96 MG ORAL active [facility] Meth[facility] Hydrochloride 5 MG Oral Tablet Methadone 11:30:00 AM EST TABLET 96 MG ORAL [facility] Pred[facility]one 20 MG Oral Tablet Prednisone 12/24/2019 10:48:25 AM EST TA BLET 40 MG ORAL completed [facility] Ondansetron 4 MG Oral Tablet [Zofran] Ondansetron Hcl Ondans etron Hcl 12/24/2019 10:48:13 AM EST TABLET 4 MG ORAL completed [facility] Prednisone 20 MG Oral Tablet Prednisone 12/24/2019 10:48:00 AM EST TA BLET 40 MG ORAL [facility] Ondansetron 4 MG Oral Tablet [Zofran] Ondansetron Hcl Ondans etron Hcl 12/24/2019 10:48:00 AM EST TABLET 4 MG ORAL completed [facility] Prednisone 20 MG Oral Tablet Prednisone 12/24/2019 10:48:00 AM EST TA BLET 40 MG ORAL [facility] Ondansetron 4 MG Oral Tablet [Zofran] Ondansetron Hcl Ondans etron Hcl 12/24/2019 10:48:00 AM EST TABLET 4 MG ORAL active [facility] methadone 03/31/2019 07:33:25 PM EDT 97 MG ORAL complet ed [facility] methadone 03/31/2019 07:33:00 PM EDT 97 MG ORAL complet ed [facility] Insurance Providers Payer name Policy type / Coverage type Policy ID Covered green party ID Covered green party's relationship to alfonso Policy Alfonso Plan Information LYNNE [id number] SP [id number] LYNNE [id number] SP [id number] SELF PAY ONLY [id number] SP [id number] SELF PAY LYNNE [id number] SP [id number] SELF PAY MEDICAID [facility] [id number] SP CR [id number] SELF PAY MEDICAID [facility] [id number] SP CR [id number] SELF PAY LYNNE [id number] SP [id number] SELF PAY LYNNE [id number] SP [id number] SELF PAY LYNNE [id number] SP [id number] SELF PAY LYNNE [id number] SP [id number] SELF PAY LYNNE [id number] SP [id number] SELF PAY LYNNE [id number] SP [id number] SELF PAY LYNNE [id number] SP [id number] SELF PAY LYNNE [id number] SP [id number] LYNNE I [id number] Self [id number] LNYNE CARE HEA [id number] S [id number] LYNNE CARE HEA UNAVAILABLE S UNAVA ILABLE LYNNE CARE HEA "" S "" LYNNE [id number] SP [id number] LYNNE [id number] SP [id number] [place]ID [place] [id number] SP CR [id number] MEDICAID [id number] Self [id number] [place] [id number] SP CR [id number] [place] [id number] SP CR [id number] SELF PAY UNAVAILABLE SP UNAVAILA BLE LYNNE [id number] SP [id number] [place]ID [place] [id number] SP CR [id number] SELF PAY - PENDING UNAVAILABLE SP UNAVAILABLE Problems, Conditions, and Diagnoses Code Display Name Description Problem Type Effective Dates Data Source(s) R51 Headache R51 - Headache Diagnosis 04/11/2020 07:23:00 P M EDT [facility] R11.10 Vomiting, unspecified R11.10 - Vomiting, unspecified D iagnosis 04/11/2020 07:23:00 PM EDT [facility] R30.9 Painful micturition, unspecified R30.9 - Painful micturition, unspecified Diagnosis 12/28/2019 11:12:00 AM EST [facility] J02.9 Acute pharyngitis, unspecified J02.9 - Acute pha ryngitis, unspecified Diagnosis 12/28/2019 11:12:00 AM EST [facility] R13.10 Dysphagia, unspecified R13.10 - Dysphagia, unspecified Diagnosis 12/28/2019 11:12:00 AM EST [facility] R50.9 Fever, unspecified R50.9 - Fever, unspecified Diagnosi s 12/24/2019 09:59:00 AM EST [facility] Results ID Date Data Source [id number] 01/03/2021 12:56:00 PM EST [facility] Name Value Range Interpretation Code Description Data Ebony rce(s) Supporting Document(s) SARS-CoV-2 (COVID-19) Negative [facility] This lab was ordered by [facility] and reported by [employer]. ID Date Data Source [id number] 01/03/2021 09:37:00 AM EST [facility] (Ken Bravo MD) Name Value Range Interpretation Code Description Data Ebony rce(s) Supporting Document(s) Laboratory test finding (navigational concept) Laboratory test r esult Normal (applies to non-numeric results) [facility] (Ken Bravo MD) Laboratory test finding (navigational concept) 1.021 1 .002-1.035 Normal (applies to non-numeric results) [facility] (Ken Bravo MD) Laboratory test finding (navigational concept) Laboratory test r esult Normal (applies to non-numeric results) [facility] (Ken Bravo MD) Laboratory test finding (navigational concept) 5.0 units 5 .0-9.0 Normal (applies to non-numeric results) [facility] (Ken Bravo MD) Laboratory test finding (navigational concept) Laboratory test r esult Normal (applies to non-numeric results) [facility] ([facility] B[facility] MD) Laboratory test finding (navigational concept) Laboratory test r esult Normal (applies to non-numeric results) [facility] (Ken Bravo MD) Laboratory test finding (navigational concept) Laboratory test r esult Normal (applies to non-numeric results) [facility] (Ken Bravo MD) Laboratory test finding (navigational concept) Laboratory test r esult Normal (applies to non-numeric results) [facility] (Ken Bravo MD) Laboratory test finding (navigational concept) 0.2 mg/dL 0 .0-2.0 Normal (applies to non-numeric results) [facility] (Ken Bravo MD) Laboratory test finding (navigational concept) Laboratory test r esult Normal (applies to non-numeric results) [facility] (Ken Bravo MD) Laboratory test finding (navigational concept) 1 /HPF 0 -3 Normal (applies to non-numeric results) [facility] (Ken Bravo MD) Laboratory test finding (navigational concept) Laboratory test r esult Normal (applies to non-numeric results) [facility] (Ken Bravo MD) Laboratory test finding (navigational concept) Laboratory test r esult Above high normal [facility] (Ken Bravo MD) Laboratory test finding (navigational concept) Laboratory test r esult Normal (applies to non-numeric results) [facility] (Ken Bravo MD) Laboratory test finding (navigational concept) 2 /HPF 0 -3 Normal (applies to non-numeric results) [facility] (Ken Bravo MD) Laboratory test finding (navigational concept) Laboratory test r esult Normal (applies to non-numeric results) [facility] (Ken Bravo MD) Laboratory test finding (navigational concept) 0 /HPF 0 -6 Normal (applies to non-numeric results) [facility] (Ken Bravo MD) Laboratory test finding (navigational concept) 0 /LPF 0 -1 Normal (applies to non-numeric results) [facility] (Ken Bravo MD) ID Date Data Source [id number] 01/03/2021 09:31:00 AM EST [facility] (Ken Bravo MD) Name Value Range Interpretation Code Description Data Ebony rce(s) Supporting Document(s) Hepatitis C virus RNA [Units/volume] (vi ral load) in Serum or Plasma by Probe with amplification Laboratory test result Abnormal (applies to non-numeric results) [facility] (Ken Bravo MD) Positive: HCV RNA Detected Performed at: [facility] [address] [address] [place], [place] [id number] [address] Gatherer: Juan Law MD, Phone: [phone] ID Date Data Source [id number] 01/03/2021 09:31:00 AM EST [facility] (Ken Bravo MD) Name Value Range Interpretation Code Description Data Ebony rce(s) Supporting Document(s) Laboratory test finding (navigational concept) Laboratory test r esult Normal (applies to non-numeric results) [facility] (Ken Bravo MD) Laboratory test finding (navigational concept) Laboratory test r esult Above high normal [facility] (Ken Bravo MD) <content>This screening test for Hepatit is C Virus was above the 1.0</content>
<content>cutoff index value and will be sent to reference lab</content>
<content>Laboratory [facility], [address] [place], [place] [address]Mahnaz [place],</content>
<content>[place] [address] for Hep C RNA ROSA testing to confirm or exclude</content>
<content>active Hepatitis C Virus infection. Screening test Positive</content>
<content>samples with high index values (>11.0) usually (95%) confirm</content>
<content>Positive, but <5 of every 100 samples with this result might</content>
<content>be a false positive and Hep C RNA ROSA testing will aid in</content>
<content>patient management.</content>
<content></content> Laboratory test finding (navigational concept) Laboratory test r esult Normal (applies to non-numeric results) [facility] (Ken Bravo MD) Laboratory test finding (navigational concept) Laboratory test r esult Normal (applies to non-numeric results) [facility] (Ken Bravo MD) ID Date Data Source [id number] 01/03/2021 09:31:00 AM EST [facility] (Ken Bravo MD) Name Value Range Interpretation Code Description Data Ebony rce(s) Supporting Document(s) Laboratory test finding (navigational concept) 23 mg/dL 7-18 Above high normal [facility] (Ken Bravo MD) Laboratory test finding (navigational concept) 98 mg/dL 7 0-100 Normal (applies to non-numeric results) [facility] (Ken Bravo MD) Laboratory test finding (navigational concept) 0.90 mg/dL 0 .55-1.30 Normal (applies to non-numeric results) [facility] (Ken Bravo MD) Laboratory test finding (navigational concept) 138 meq/L 1 36-145 Normal (applies to non-numeric results) [facility] (Ken Bravo MD) Laboratory test finding (navigational concept) Laboratory test r esult Normal (applies to non-numeric results) [facility] (Ken Bravo MD) <content>Units are mL/min/1.73 m2</content>
<content></content>
<content>Chronic Kidney Disease Staging per NKF:</content>
<content></content>
<content>Stage I & II GFR >=60 Normal to Mildly Decreased</content>
<content>Stage III GFR 30- 59 Moderately Decreased</content>
<content>Stage IV GFR 15-29 Severely Decreased</content>
<content>Stage V GFR <15 Very Little GFR Left</content>
<content>ESRD GFR <15 on SCRAP CHARGER</content>
<content></content> Laboratory test finding (navigational concept) 4.7 meq/L 3 .5-5.1 Normal (applies to non-numeric results) [facility] (Ken Bravo MD) Laboratory test finding (navigational concept) 102 meq/L 9 8-107 Normal (applies to non-numeric results) [facility] (Ken Bravo MD) Laboratory test finding (navigational concept) 29 meq/L 2 1-32 Normal (applies to non-numeric results) [facility] (Ken Bravo MD) Laboratory test finding (navigational concept) 9.1 mg/dL 8 .5-10.1 Normal (applies to non-numeric results) [facility] (Ken Bravo MD) Laboratory test finding (navigational concept) 84 U/L 7-37 Above high normal [facility] (Ken Bravo MD) Laboratory test finding (navigational concept) 7 meq/L 8-16 Below low normal [facility] (Ken Bravo MD) Laboratory test finding (navigational concept) 150 U/L 12-78 Above high normal [facility] (Ken Bravo MD) Laboratory test finding (navigational concept) 151 U/L 45-117 Above high normal [facility] (Ken Bravo MD) Laboratory test finding (navigational concept) 0.2 mg/dL 0 .2-1.0 Normal (applies to non-numeric results) [facility] (Ken Bravo MD) Laboratory test finding (navigational concept) 7.1 GM/DL 6 .4-8.2 Normal (applies to non-numeric results) [facility] (Ken Bravo MD) Laboratory test finding (navigational concept) 1.1 1.2-2.2 Below low normal [facility] (Ken Bravo MD) Laboratory test finding (navigational concept) 3.7 GM/DL 3 .2-5.2 Normal (applies to non-numeric results) [facility] (Ken Bravo MD) ID Date Data Source [id number] 01/03/2021 09:31:00 AM EST [facility] (Ken Bravo MD) Name Value Range Interpretation Code Description Data Ebony rce(s) Supporting Document(s) Laboratory test finding (navigational concept) 4.32 10 4 .00-5.40 Normal (applies to non-numeric results) [facility] (Ken Bravo MD) Laboratory test finding (navigational concept) 11.6 g/dL 1 2.0-15.5 Below low normal [facility] (Ken Bravo MD) Laboratory test finding (navigational concept) 5.8 10 4 .0-10.0 Normal (applies to non-numeric results) [facility] (Ken Bravo MD) Laboratory test finding (navigational concept) 85.4 fl 8 0.0-96.0 Normal (applies to non-numeric results) [facility] (Ken Bravo MD) Laboratory test finding (navigational concept) 26.9 pg 2 7.0-33.0 Below low normal [facility] (Ken Bravo MD) Laboratory test finding (navigational concept) 36.9 % 3 6.0-47.0 Normal (applies to non-numeric results) [facility] (Ken Bravo MD) Laboratory test finding (navigational concept) 31.4 g/dL 3 2.0-36.5 Below low normal [facility] (Ken Bravo MD) Laboratory test finding (navigational concept) 14.0 % 1 1.5-14.5 Normal (applies to non-numeric results) [facility] (Ken Bravo MD) Laboratory test finding (navigational concept) 205 10 1 50-450 Normal (applies to non-numeric results) [facility] (Ken Bravo MD) Laboratory test finding (navigational concept) 52.3 % 3 6.0-66.0 Normal (applies to non-numeric results) [facility] (Ken Bravo MD) Laboratory test finding (navigational concept) 37.5 % 2 4.0-44.0 Normal (applies to non-numeric results) [facility] (Ken Bravo MD) Laboratory test finding (navigational concept) 2.7 % 0 .0-3.0 Normal (applies to non-numeric results) [facility] (Ken Bravo MD) Laboratory test finding (navigational concept) 6.5 % 0.0-5.0 Above high normal [facility] (Ken Bravo MD) Laboratory test finding (navigational concept) 0.0 % 0 -0 Normal (applies to non- numeric results) [facility] (Ken Bravo MD) Laboratory test finding (navigational concept) 0.3 % 0 -3.0 Normal (applies to non-numeric results) [facility] (Ken Bravo MD) Laboratory test finding (navigational concept) 0.7 % 0 .0-1.0 Normal (applies to non-numeric results) [facility] (Ken Bravo MD) Laboratory test finding (navigational concept) 0.4 10 0 .0-0.8 Normal (applies to non-numeric results) [facility] (Ken Bravo MD) Laboratory test finding (navigational concept) 3.1 10 1 .5-8.5 Normal (applies to non-numeric results) [facility] (Ken Bravo MD) Laboratory test finding (navigational concept) 2.2 10 1 .5-5.0 Normal (applies to non-numeric results) [facility] (Ken Bravo MD) Laboratory test finding (navigational concept) 0.2 10 0 .0-0.5 Normal (applies to non-numeric results) [facility] (Ken Bravo MD) Laboratory test finding (navigational concept) 0.0 10 0 .0-0.2 Normal (applies to non-numeric results) [facility] (Ken Bravo MD) ID Date Data Source [id number] 04/11/2020 07:43:00 [place] [address] HEALTH INFORMATION MANAGEMENT ED/UC Physician Report : [id number] Signed Patient: Ministerio Everett Acct:[id number] Unit: [id number] : 1990 Arrival Date: 04/11/20 Age/Sex: 29 / F Arrival Time: 1922 Copies to: PCP,No Abdominal Pain HPI/ROS General Chief Complaint: Vomiting/Diarrhea Stated Complaint: Fmcuc-Vomiting sever headache Stated Complaint: Fmcuc-Vomiting sever headache Source: Patient and I have reviewed available Ancillary/nursing staff documentation Mode of arrival: Ambulatory Limitations: Reports No limitations History of Present Illness Initial Comments: 29-year-old female presents with nausea and vomiting. Patient states she has beenvomiting all day today and vomited about 5 or 6 times. She denies any new new medication. She doessmoke marijuana and did smoke earlier today. No drug use she states. No abdominal pain at this time. She has been having a sense for being thirsty at this time as well as a headache. She statesher hungry is down this time. She has had about 8-12 oz water today which she states she has peakedup. She had her last menstrual cycle approximately 2 weeks ago so states she is not . She also states she has been developing headache from the vomiting. She states that yesterday she was feeling fine and this came out of nowhere with the nausea. She denies any vision change or vision loss. She denies any fevers or chills or recent illness. She states she does have headache which is not uncommon for her if she does have a history of some intermittent migraines. She denies any dizziness or lightheadedness. She throughout the day has had episodes of urination and bowel movement. Related Data Home Medications Medication Instructions Recorded methadone 96 mg PO DAILY 12/28/19 prochlorperazine maleate 5 mg PO TID PRN #10 tab 04/11/20 [Compazine] Allergies No Known Allergies Allergy (Verified 04/11/20 19:35) Review of Systems Review of Systems All systems: Reviewed and negative except as stated in HPI. GI: Reports Nausea and Vomiting Social History Social History Other: Smokes 1/2-1 ppd Denies alcohol Pt istaking methadone for IVDA Patient lives with her , cheryl, his mother, his mother's girlfriend. 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 Lives with: Reports Family PMH/PSH PMH/PSH Medical History H/O self mutilation (Acute) Intravenous drug abuse (Acute) Noncompliance with medication regimen (Acute) Seizure (Acute) Surgical History No pertinent past surgical history (Acute Surgical) Family History Aunt Brain cancer Mother Brain cancer Asthma Uncle Brain cancer Maternal Grandmother Malignant neoplasm of lung Physical Exam Physical Exam Physical Exam: General appearance: Alert and In no apparent distress with anxiety Head Head Exam: Atraumatic and Normcephalic Eye Eye Exam: EOMI, Fundi normal, Conjunctiva normal, Sclera normal and LUZ ENT ENT Exam: Dentition without abscess, External ear normal, Nose normal, Throat normal and Tympanic membrane normal and MMM Mouth/Throat Exam: Normal inspection Neck Neck Exam: Full ROM, Supple and Trachea Midline Cardiac Cardiac: Present: Regular rate and rhythm Cardiac Abnormal: Absent: Peripheral edema Murmur: Present: None Lung/Chest Lung/Chest Exam: Clear and Normal Exchange Neuro Neuro Normal: Alert, Oriented x 3, CN 2-12 normal, Fluent speech, Sensory normal and Strength 5/5 all extremities Psych Psych Normal: Normal Affect with some anxiety Skin Skin exam: Dry, Intact, Delmar and Warm Abdomen soft nondistended Medical Decision Making/CCT Medication/Allergies Review Medication/Allergies Review Home Medication and Allergy review: I reviewed patients allergies, home medications, and new prescriptions Blood Pressure Blood pressure: Pt BP not elevated Medical Decision Making Medical Decision Making: Patient presents with significant nausea with some vomiting. Given antiemetic care in the urgent care setting. Patient states she feels mildly improved with the Zofran with reduced nausea and she has been able to drink alireza johanne in the urgent care setting without vomiting. We discussed the medication does have the potential for QT prolongation with the use of methadone. We have little alternatives of this urgent care setting and only anticipate a single dose of the Zofran so For this reason we gave patient a dose the Zofran and patient aware that the Phenergan can cause side effects as well. chose to go with Phenergan in an effort to avoid additional Zofran. I advised she needs to drink her fluids and stay hydrated. If any concerns for dizziness or lightheadedness or any additional vomiting she is to go directly to the emergency room. I told her I would prefer she went to emergency room at this time but she would like to go home and try to drink fluids and she does feel improved with the Zofran. She has no history of any previous cardiac concerns. She also has a history of self abuse and states that in the past she has had desires hurt herself but that lately with this time she has no concerns for that. She denies any suicidal homicidal ideations. She is aware and agreeable to the plan and the side effects of both the Zofran as well as the phenergan. She states she is aware and agreeable to the plan at this time and if any concerns for any worsening symptoms or vomiting she will go directly to the emergency room for higher level of care at this facility does not have the capacity for stat blood work/offer IV hydration. She also does have history of smoking marijuana and I advised her to refrain from that as this may sometimes cause a hyperemesis situation with worsening nausea and vomiting. She is aware of this as well. She states and denies any additional drugs that she is using at this time with her history of using opiates. I asked her about her blood pressure and she states that she is not sure why her blood pressure normally is but does not feel any lightheadedness or dizziness that is concerning at this time. She was driven here by her fiance a nd will be driven home at this time. Discharge Plan Disposition Clinical Impression: Nausea vomiting Qualifiers: Vomiting type: bilious vomiting Qualified Code(s): R11.14 - Bilious vomiting Differential Diagnosis: Hyperemesis, nausea, vomiting, viral illness, food poisoning Provider stated Dispo: Discharged Condition: Good Instructions: Acute Nausea and Vomiting (ED) Activity Restrictions/Additional Instructions: If symptoms worsen go to Emergency Room please Prescriptions: New prochlorperazine maleate [Compazine] 5 mg tablet 5 mg PO TID PRN (Reason: nausea and vomiting) Qty: 10 RF: 0 No Action methadone 5 mg Tablet 96 mg PO DAILY RF: 0 Referrals: PCP,No [Primary Care Provider] - 1 day Patient agreeable to discharge: Patient/Guardian understands and is agreeable to discharge plan Discharge Date/Time: 04/11/20 20:29 Date/Time <<Signature on File>> Initializing User: Eliu Espinoza DO 04/11/201942 Signed by: Eliu Espinoza DO 04/11/202033 Name Value Range Interpretation Code Description Data Ebony rce(s) Supporting Document(s) ID Date Data Source [id number] 12/28/2019 12:35:00 PM [facility] - Laboratory RUN DATE: 12/31/[address] [place] [address] RUN TIME: 0853 Dr. Vern Dunne-Paper Inserter REGIS # [id number] PATIENT: Ministerio Everett ACCT: [id number] [place] [facility] [place]: [id number] : [birth year] AGE/SX: 29/F ROOM: RE12/28/[address]: Nathalia Bain DO STATUS: DEP ER BED: DIS: Copies To: Nathalia Bain DO PCP,No Specimen #: [id number] Ordered : 12/28/19 Collected : 12/28/19 By: KWABENA Received: 12/28/19 By: RRBROWN Source: URINE CC Specimen Description: Procedure Result Verified COLONY COUNT Final COLONY COUNT 50,000 CFU/ML URINE CULTURE Final COLIFORMS SOME Organism 1 ESCHERICHIA COLI 1. ESCHERICHIA COLI RAFIQ Int --------- --- AMIKACIN <=16 S AMPICILL IN >16 R AMPICILLIN/SULBACTAM <=8/4 S AZTREONAM <=4 S CEFAZOLIN <=2 S CEFEPIME <=2 S CEFTAZIDIME <=1 S CEFTRIAXONE <=1 S CIPROFLOXACIN <=1 S GENTAMICIN <=4 S IMIPENEM <=1 S LEVOFLOXACIN <=2 S MEROPENEM <=1 S NITROFURANTOIN <=32 S TETRACYCLINE <=4 S TOBRAMYCIN <=4 S TRIMETHOPRIM/SULFAMETHOXAZOLE <=2/38 S PIPERACILLIN/TAZOBACTAM <=16 S S = Susceptible MS = Moderately Susceptible I = Intermediate R = Resistant MARY = Beta Lactamase Positive RAFIQ = MCG/mL BLANK = Not Tested or Advisable ---- -------- Name Value Range Interpretation Code Description Data Ebony rce(s) Supporting Document(s) COLOR,UR DARK YELLOW YELLOW [facility] APPEARANCE,UR SLIGHTLY CLOUDY CLEAR A [facility] PH,UR 6.0 5.0-8.0 [facility] SPECIFIC GRAVITY,UR 1.025 1.002-1.035 N [facility] PROTEIN,UR 30 MG/DL NEGATIVE A [facility] GLUCOSE, UR NEGATIVE MG/DL NEGATIVE [facility] KETONES,UR TRACE MG/DL NEGATIVE A [facility] OCCULT BLOOD,UR TRACE NEGATIVE A [facility] NITRATE,UR POSITIVE NEGATIVE A [facility] LEUKOCYTE ESTERASE ,UR TRACE NEGATIVE A [facility] [employer] BILIRUBIN,UR SMALL NEGATIVE A [facility] UROBILINOGEN,UR 1.0 EU MG/DL NEG-0-1.0 [facility] ID Date Data Source [id number] 12/31/2019 08:53:00 AM EST [facility] [employer] [facility] - Laboratory RUN DATE: 12/31/[address] [place] [address] RUN TIME: 852 Dr. Vern Dunne-Paper Inserter REGIS # [id number] PATIENT: Ministerio Everett ACCT: [id number] [place]: [facility] [place]: [id number] : 89 AGE/SX: ROOM: RE12/28/[address]: Nathalia Bain DO STATUS: [facility] BED: DIS: Copies To: Nathalia Bain DO PCP,No Specimen #: [id number] Ordered : 12/28/19 Collected : 12/28/19 By: KWABENA Received: 12/28/19 By: SHIRA Source: URINE CC Specimen Description: Procedure Result Verified COLONY COUNT Final COLONY COUNT 50,000 CFU/ML URINE CULTURE Final COLIFORMS SOME Organism 1 ESCHERICHIA COLI 1. ESCHERICHIA COLI RAFIQ Int --------- --- AMIKACIN <=16 S AMPICILL IN >16 R AMPICILLIN/SULBACTAM <=8/4 S AZTREONAM <=4 S CEFAZOLIN <=2 S CEFEPIME <=2 S CEFTAZIDIME <=1 S CEFTRIAXONE <=1 S CIPROFLOXACIN <=1 S GENTAMICIN <=4 S IMIPENEM <=1 S LEVOFLOXACIN <=2 S MEROPENEM <=1 S NITROFURANTOIN <=32 S TETRACYCLINE <=4 S TOBRAMYCIN <=4 S TRIMETHOPRIM/SULFAMETHOXAZOLE <=2/38 S PIPERACILLIN/TAZOBACTAM <=16 S S = Susceptible MS = Moderately Susceptible I = Intermediate R = Resistant MARY = Beta Lactamase Positive RAFIQ = MCG/mL BLANK = Not Tested or Advisable ---- -------- Name Value Range Interpretation Code Description Data Ebony elise(s) Supporting Document(s) ID Date Data Source [id number] 12/28/2019 12:37:00 PM [facility] Name Value Range Interpretation Code Description Data Ebony elise(s) Supporting Document(s) HCG,QUALITATIVE NEGATIVE [facility] Reference range is Negative To ensure best sensitivity, first morning void is recommended. Dilute, low specific gravity urine may give a falsely negative result. If is suspected, repeat testing with a new specimen 48-72 hours later. SPECIMEN TYPE URINE [facility] ID Date Data Source [id number] 12/28/2019 12:02:[address] [address] HEALTH INFORMATION MANAGEMENT ED/UC Physician Report : [id number] Signed Patient: Ministerio Everett Acct:[id number] Unit: [id number] : 1990 Arrival Date: 12/28/19 Age/Sex: 29 / F Arrival Time: 1112 Copies to: PCP,No ENT HPI/ROS General Chief Complaint: Throat Pain/Nasal Congestion Stated Complaint: Fmcuc/ hard to swallow, sore throat Stated Complaint: Fmcuc/ hard to swallow, sore throat Source: Patient and I have reviewed available Ancillary/nursing staff documentation Mode of arrival: Ambulatory Limitations: Reports No limitations History of Present Illness Initial Comments: pt c/o st for the past week, has been eval x 2, once here and [facility] [place]. given doxycycline there, pt never picked up or started, given prednisone and finished this am. states no better. also now stings when she urinates Onset/Timin Time interval: Week(s) Severity: Reports Moderate EENT Location: Reports Throat and Other Prearrival Treatment: Reports Prescription meds and Over the counter meds Modifying Factors: Reports Chewing and Other (swallowing) Associated Symptoms: Reports Fever, Malaise, Poor solids intake, Sore throat and Other The patient has taken the following medication for pain:: Reports NSAIDs and Tylenol Related Data Home Medications Medication Instructions Recorded cephalexin [Keflex] 500 mg PO TID #30 cap 12/28/19 lidocaine HCl [Lidocaine Viscous] 5 ml MUC MEMB QID #100 ml 12/28/19 methadone 96 mg PO DAILY 12/28/19 phenazopyridine [Pyridium] 200 mg PO TID #14 tab 12/28/19 Allergies No Known Allergies Allergy (Verified 11/10/19 16:48) Review of Systems General: Reports Fever, Chills and Fatigue Eye: Denies Eye pain, Blurred vision and Discharge ENT: Reports Sore throat; Denies Ear ache, Epistaxis, Nasal congestion and Sinus congestion Cardiac: Denies Chest pain, Palpitations and Syncope Respiratory: Denies Cough, Shortness of Breath and Dyspnea on exertion GI: Denies Nausea, Vomiting and Diarrhea : Reports Dysuria, Frequency and Urgency Neuro: Denies Headache, Dizziness, Numbness, Tingling and Weakness Musculoskeletal: Denies Neck Pain and Back Pain Skin: Denies Bruising, Itching and Rash Psychiatric: Denies Anxiety and Depression Social History Social History Other: Smokes 1/2-1 ppd Denies alcohol Pt istaking methadone for IVDA Patient lives with her , cheryl, his mother, his mother's girlfriend. 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 Lives with: Reports Family PMH/PSH PMH/PSH Medical History H/O self mutilation (Acute) Intravenous drug abuse (Acute) Noncompliance with medication regimen (Acute) Seizure (Acute) Surgical History No pertinent past surgical history (Acute Surgical) Family History Aunt Brain cancer Mother Brain cancer Asthma Uncle Brain cancer Maternal Grandmother Malignant neoplasm of lung Physical Exam Physical Exam General appearance: Alert and In no apparent distress Head Head Exam: Atraumatic and Normcephalic Eye Eye Exam: EOMI, Conjunctiva normal, Sclera normal, LUZ and Eyelids ENT ENT Exam: Dentition without abscess, External ear normal, Nose normal, No sublingual edema/erythema, No tongue elevation and Tympanic membrane normal Mouth/Throat Exam: throat with exudate and tonsils enlarged Dental Exam: Normal inspection Neck Neck Exam: Full ROM, Supple and Trachea Midline Cardiac Cardiac: Present: Regular rate and rhythm Murmur: Present: None Lung/Chest Lung/Chest Exam: Clear, Normal Exchange and No chest wall tenderness Abdomen Abdominal Exam: Bowel sounds normal, Soft, Nondistended, Nontender, No guarding, No hepatosplenomegaly, No masses and No rebound tenderness Back Location of Back Tenderness: CVA: Neg, Thoracic: Neg, Lumbar: Neg, Midline: Neg and Paraspinal: Neg Neuro Neuro Normal: Alert, Oriented x 3, CN 2-12 normal, Fluent speech, Gag Reflex, Gait normal, Sensory normal and Strength 5/5 all extremities Psych Psych Normal: Normal Affect Skin Skin exam: Dry, Intact, Delmar and Warm Course Vital Signs Vital signs: Vital Signs 12/28/19 11:29 Temperature 97.9 F Pulse Rate 93 Respiratory Rate 18 Blood Pressure 127/64 O2 Sat by Pulse Oximetry 98 Medical Decision Making/CCT Lab Data Lab Data Labs reviewed: Yes Labs: Lab Results 12/28/19 Range/Units 11:31 Group A Strep Screen NEGATIVE (NEGATIVE) Medication/Allergies Review Medication/Allergies Review Home Medication and Allergy review: I reviewed patients allergies, home medications, and new prescriptions and No Allergies reported Blood Pressure Blood pressure: Pt's BP is prehypertensive range (>120/80), pt advised follow up w/PCP Medical Decision Making Medical Decision Making: tx with keflex for uti and pharyngitis reviewed throat cx and pos for hem pos not group a strep Discharge Plan Disposition Clinical Impression: UTI (urinary tract infection) Qualifiers: Urinary tract infection type: acute cystitis Hematuria presence: with hematuria Qualified Code(s): N30.01 - Acute cystitis with hematuria Pharyngitis Qualifiers: Pharyngitis/tonsillitis etiology: unspecified etiology Qualified Code(s): J02.9 - Acute pharyngitis, unspecified Provider stated Dispo: Discharged Condition: Good Instructions: Urinary Tract Infection in Women (ED), Pharyngitis (ED) Prescriptions: New cephalexin [Keflex] 500 mg capsule 500 mg PO TID Qty: 30 RF: 0 Lidocaine Viscous 2 % solution 5 ml MUC MEMB QID Qty: 100 RF: 0 phenazopyridine [Pyridium] 200 mg tablet 200 mg PO TID Qty: 14 RF: 0 No Action methadone 5 mg Tablet 96 mg PO DAILY RF: 0 Referrals: PCP,No [Primary Care Provider] - Patient agreeable to discharge: Patient/Guardian understands and is agreeable to discharge plan Provider in triage note Vital Signs Vital Signs: Vital Signs (Last 8 Hours) Temp Pulse Resp BP Pulse Ox 12/28/19 11:29 97.9 F 93 18 127/64 98 Date/Time <<Signature on File>> Initializing User: Claire SUAREZ 12/28/19 1202 Signed by: Claire Fraser 12/28/19 1230 Nathalia Bain DO 12/28/19 7515 Name Value Range Interpretation Code Description Data Ebony rce(s) Supporting Document(s) ID Date Data Source [id number] 12/28/2019 11:42:00 AM EST [facility] - Laboratory RUN DATE: 12/30/[address] [place] [address] RUN TIME: 0839 Dr. Vern Dunne-Paper Inserter REGIS # [id number] PATIENT: Ministerio Everett ACCT: [id number] [place]: [facility] [place]: [id number] : [birth year] AGE/SX: 29 ROOM: RE12/28/[address]: Nathalia Bain DO STATUS: DEP ER BED: DIS: Copies To: Nathalia Bain DO PCP,No Specimen #: [id number] Ordered : 12/28/19 Collected : 12/28/19 By: SHIRA Received: 12/28/19 By: SHIRA Source: THROAT Specimen Description: Procedure Result Verified THROAT CULT /STREP ONLY Final USUAL MAURICIO PLUS HEMOLYTIC STREPTOCOCCI MANY Organism 1 HEM STREPTOCOCCI NOT GRP A Name Value Range Interpretation Code Description Data Ebony rce(s) Supporting Document(s) RAPID STREP SCREEN NEGATIVE NEGATIVE [facility] Testing Performed by color immunochroma tographic assay using dual label technology. Culture Confirmation of Negative samples is Recommended. Infection due to Streptococci Group A cannot be Ruled Out in Negative tests since the Antigen Present Maybe Below the Detection Limit of the Test. ID Date Data Source [id number] 12/30/2019 08:39:00 AM [facility] - Laboratory RUN DATE: 12/30/[address] [place] [address] RUN TIME: 838 Dr. Vern Dunne-Paper Inserter REGIS # [id number] PATIENT: Ministerio Everett ACCT: [id number] [place] [facility] [place]: [id number] : [birth year] AGE/SX: 29/ ROOM: RE12/28/[address]: Nathalia Bain DO STATUS: DEP BED: DIS: Copies To: Nathalia Bain DO PCP,No Specimen #: [id number] Ordered : 12/28/19 Collected : 12/28/19 By: SHIRA Received: 12/28/19 By: SHIRA Source: THROAT Specimen Description: Procedure Result Verified THROAT CULT /STREP ONLY Final USUAL MAURICIO PLUS HEMOLYTIC STREPTOCOCCI MANY Organism 1 HEM STREPTOCOCCI NOT GRP A Name Value Range Interpretation Code Description Data Ebony rce(s) Supporting Document(s) ID Date Data Source [id number] 12/28/2019 11:42:00 AM EST [facility] - Laboratory RUN DATE: 12/30/[address] [place] [address] RUN TIME: 838 Dr. Vern Dunne-Paper Inserter REGIS # [id number] PATIENT: Ministerio Everett ACCT: [id number] LOC: [facility] [place]: [id number] : 89 AGE/SX: /F ROOM: RE12/28/[address]: Nathalia Bain DO STATUS: DEP ER BED: DIS: Copies To: Nathalia Bain DO PCP,No Specimen #: [id number] Ordered : 12/28/19 Collected : 12/28/19 By: SHIRA Received: 12/28/19 By: SHIRA Source: THROAT Specimen Description: Procedure Result Verified THROAT CULT /STREP ONLY Final USUAL MAURICIO PLUS HEMOLYTIC STREPTOCOCCI MANY Organism 1 HEM STREPTOCOCCI NOT GRP A Name Value Range Interpretation Code Description Data Ebony rce(s) Supporting Document(s) SECOND SWAB RECEIVED YES [facility] ID Date Data Source [id number] 12/24/2019 10:19:[address] [address] HEALTH INFORMATION MANAGEMENT ED/UC Physician Report : [id number] Signed Patient: Ministerio Everett Acct:[id number] Unit: [id number] : 1990 Arrival Date: 12/24/19 Age/Sex: 29 / F Arrival Time: 958 Copies to: PCP,No General Adult HPI/ROS General Chief Complaint: Complex/Multi-System Present Stated Complaint: [facility]/Headach,sore throat,bodyaches,fever Stated Complaint: [facility]/Headach,sore throat,bodyaches,fever Source: Patient and I have reviewed available Ancillary/nursing staff documentation Mode of arrival: Ambulatory Limitations: Reports No limitations History of Present Illness Initial Comments: The patient is a 29-year-old female with the below past medical history who presents to Urgent Care over concerns for worsening throat pain. The patient states that she had several days of cold symptoms. She was seen and evaluated at a Urgent Care not within our system yesterday. For unclear reasons she was given a prescription for doxycycline. The patient has picked this medication up but is not yet taken it. This morning the patient had worsening sore throat, a fever for which she presents to urgent care. No other pertinent past medical, surgical or family history than those listed below. Related Data Home Medications Medication Instructions Recorded methadone 97 mg PO DAILY 03/31/19 ondansetron HCl [Zofran] 4 mg PO Q8H PRN #20 tab 12/24/19 prednisone 40 mg PO DAILY 5 Days #10 tab 12/24/19 Allergies No Known Allergies Allergy (Verified 11/10/19 16:48) Review of Systems General: Reports Fever and Chills Eye: Denies Eye pain, Blurred vision and Discharge ENT: Reports Ear ache, Nasal congestion and Sinus congestion; Denies Epistaxis and Sore throat Cardiac: Denies Chest pain, Palpitations and Syncope Respiratory: Reports Cough; Denies Shortness of Breath and Dyspnea on exertion GI: Reports Nausea; Denies Pain, Vomiting and Diarrhea : Denies Bleeding and Discharge Neuro: Reports Headache; Denies Dizziness and Numbness Musculoskeletal: Denies Neck Pain and Back Pain Skin: Denies Bruising and Itching Psychiatric: Denies Anxiety and Depression Social History Social History Other: Smokes 1/2-1 ppd Denies alcohol Pt istaking methadone for IVDA Patient lives with her , cheryl, his mother, his mother's girlfriend. 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 Lives with: Reports Family PMH/PSH PMH/PSH Medical History H/O self mutilation (Acute) Intravenous drug abuse (Acute) Noncompliance with medication regimen (Acute) Seizure (Acute) Surgical History No pertinent past surgical history (Acute Surgical) Family History Aunt Brain cancer Mother Brain cancer Asthma Uncle Brain cancer Maternal Grandmother Malignant neoplasm of lung Physical Exam Physical Exam Physical Exam: Physical Exam: General appearance: Alert and In no apparent distress Cardiac Cardiac: Present: Regular rate and rhythm, no murmurs rubs or gallops HEENT Posterior oropharynx erythema, mild tonsillar exudates bilaterally but symmetrical. Uvula midline. Mild anterior cervical lymphadenopathy. Lung/Chest Lung/Chest Exam: Clear, Normal Exchange and No chest wall tenderness Musculoskeletal Full range of motion of her shoulders and hips. With no obvious weakness in the bilateral upper and lower extremities Abdomen Soft nontender nondistended Neuro Neuro Normal: Alert, Oriented x 3, Fluent speech, Gait normal, Sensory normal and Strength 5/5 all extremities Psych Psych Normal: Normal Affect Skin No obvious rashes Course Vital Signs Vital signs: Vital Signs 12/24/19 10:08 Temperature 101.2 F H Pulse Rate 113 H Respiratory Rate 18 Blood Pressure 132/87 O2 Sat by Pulse Oximetry 97 Medical Decision Making/CCT Medication/Allergies Review Medication/Allergies Review Home Medication and Allergy review: I reviewed patients allergies, home medications, and new prescriptions Blood Pressure Blood pressure: Pt BP not elevated Medical Decision Making Medical Decision Making: The patient is a 29-year-old female who presents to Urgent Care for concerns for URI symptoms. Workup did include a negative rapid strep and negative rapid flu screen. The overall history and physical is consistent with that of viral pharyngitis. Given there is no clear indication for antibiotics the patient was advised the doxycycline may worsen her nausea, she was asked to take prednisone and Zofran and not the antibiotic. The patient does have a history of IV drug abuse. She is currently on methadone. She was able to tolerate her p.o. Methadone dose this morning without any difficulties. The patient denies use of any other IV drugs. There's no murmur on exam. Repeat serial abdominal exams the patient had no abdominal tenderness. Given this and her abdominal surgical emergencies however thought less likely. On exam the patient had no nuchal rigidity or clear signs of meningitis. Given the complaint of headache, fever and tachycardia there was some concern for this differential. The patient is given strict return precautions as relates to this and advised to present to the emergency department should her symptoms not resolve within the next 24 hours. She was asked to follow up with her primary care physician. Prior discharge she is in strict return precautions. She was ambulating tolerating p.o. Discharge Plan Disposition Clinical Impression: Acute viral pharyngitis Provider stated Dispo: Discharged Condition: Stable Instructions: Upper Respiratory Infection (ED), Cold Symptoms (ED) Prescriptions: New ondansetron HCl [Zofran] 4 mg tablet 4 mg PO Q8H PRN (Reason: nausea and vomiting) Qty: 20 RF: 0 prednisone 20 mg tablet 40 mg PO DAILY 5 Days Qty: 10 RF: 0 No Action methadone 97 mg PO DAILY RF: 0 Referrals: PCP,No [Primary Care Provider] - Patient agreeable to discharge: Patient/Guardian understands and is agreeable to discharge plan Provider in triage note Vital Signs Vital Signs: Vital Signs (Last 8 Hours) Temp Pulse Resp BP Pulse Ox 12/24/19 10:08 101.2 F H 113 H 18 132/87 97 Date/Time <<Signature on File>> Initializing User: Marko Andrews DO 12/24/19 1019 Signed by: Marko Andrews DO 12/24/19 1054 Name Value Range Interpretation Code Description Data Ebony rce(s) Supporting Document(s) ID Date Data Source [id number] 12/24/2019 10:27:00 AM EST [facility] - Laboratory RUN DATE: 12/26/[address] [place] [address] RUN TIME: 0803 Dr. Vern Dunne-Paper Inserter REGIS # [id number] PATIENT: Ministerio Everett ACCT: [id number] LOC: [facility] [place]: [id number] : [birth year] AGE/SX: 29/F ROOM: RE12/24/[address]: Marko Andrews DO STATUS: DEP ER BED: DIS: Copies To: PCP,No Specimen #: [id number] Ordered : 12/24/19 Collected : 12/24/19 By: SHIRA Received: 12/24/19 By: SHIRA Source: THROAT Specimen Description: Procedure Result Verified THROAT CULT /STREP ONLY Final HEMOLYTIC STREPTOCOCCI SOME Organism 1 HEM STREPTOCOCCI NOT GRP A Name Value Range Interpretation Code Description Data Ebony rce(s) Supporting Document(s) RAPID STREP SCREEN NEGATIVE NEGATIVE [facility] Testing Performed by color immunochroma tographic assay using dual label technology. Culture Confirmation of Negative samples is Recommended. Infection due to Streptococci Group A cannot be Ruled Out in Negative tests since the Antigen Present Maybe Below the Detection Limit of the Test. ID Date Data Source [id number] 12/26/2019 08:03:00 AM EST [facility] - Laboratory RUN DATE: 12/26/19 [address] [facility] [address] RUN TIME: 802 Dr. Vern Dunne-Paper Inserter SATHISHMOHINI # [id number] PATIENT: Ministerio vEerett ACCT: [id number] LOC: [facility] [place]: [id number] : [birth year] AGE/SX: ROOM: RE12/24/[address]: Marko Andrews DO STATUS: DEP ER BED: DIS: Copies To: PCP,No Specimen #: [id number] Ordered : 12/24/19 Collected : 12/24/19 By: SHIRA Received: 12/24/19 By: SHIRA Source: THROAT Specimen Description: Procedure Result Verified THROAT CULT /STREP ONLY Final HEMOLYTIC STREPTOCOCCI SOME Organism 1 HEM STREPTOCOCCI NOT GRP A Name Value Range Interpretation Code Description Data Ebony rce(s) Supporting Document(s) ID Date Data Source [id number] 12/24/2019 10:27:00 AM EST [facility] - [facility] RUN DATE: 12/26/[address] [place] [address] RUN TIME: 0803 Dr. Vern Dunne-Paper Inserter REGIS # [id number] PATIENT: Ministerio Everett ACCT: [id number] LOC: [facility] U: [id number] : [birth year] AGE/SX: 29/F ROOM: RE12/24/[address]: Andrews,Marko DO STATUS: DEP ER BED: DIS: Copies To: PCP,No Specimen #: [id number] Ordered : 12/24/19 Collected : 12/24/19 By: SHIRA Received: 12/24/19 By: SHIRA Source: THROAT Specimen Description: Procedure Result Verified THROAT CULT /STREP ONLY Final HEMOLYTIC STREPTOCOCCI SOME Organism 1 HEM STREPTOCOCCI NOT GRP A Name Value Range Interpretation Code Description Data Ebony rce(s) Supporting Document(s) SECOND SWAB RECEIVED YES Sonal LEDEZMA Date Data Source [id number] 12/24/2019 10:27:00 AM EST [employer] Name Value Range Interpretation Code Description Data Ebony rce(s) Supporting Document(s) INFLUENZA A RAPID - UC NEGATIVE NEGATIVE [facility] Test Performed by Rapid Immunochromatog raphic Assay INFLUENZA B RAPID - UC NEGATIVE NEGATIVE [facility] Test Performed by Rapid Immunochromatog raphic Assay Procedure Social History Code Duration Value Status Description Data Source(s ) 04/11/2020 07:45:59 PM EDT Light Tobacco(<5 cig/day) c ompleted Light Tobacco(<5 cig/day) [facility] 04/11/2020 07:45:59 PM EDT Cigarettes completed Cigarette s [employer] [employer] Smoking 04/11/2020 07:45:00 PM EDT Current Light tobacco smoke r completed Current Light tobacco smoker [employer] 12/28/2019 12:02:00 PM EST Light Tobacco(<5 cig/day) c ompleted Light Tobacco(<5 cig/day) [employer] 12/28/2019 12:02:00 PM EST Cigarettes completed Cigarette s [employer] Smoking 12/28/2019 12:02:00 PM EST Current Light tobacco smoke r completed Current Light tobacco smoker [employer] 12/24/2019 10:23:00 AM EST Light Tobacco(<5 cig/day) c ompleted Light Tobacco(<5 cig/day) [employer] 12/24/2019 10:23:00 AM EST Cigarettes completed Cigarette s [employer] Smoking 12/24/2019 10:23:00 AM EST Current Light tobacco smoke r completed Current Light tobacco smoker [employer] Vital Signs ID Date Data Source UNK Name Value Range Interpretation Code Description Data Source(s) Diastolic blood pressure 56 mm[Hg] 56 mm[Hg] [facility] Systolic blood pressure 88 mm[Hg] 88 mm[Hg] O [employer] Oxygen saturation in Arterial blood by Pulse oximetry 98 % 98 % [facility] [employer] Respiratory rate 22 /min 22 /min [facility] Heart rate 88 /min 88 /min [employer] Body temperature 98.8 [degF] 98.8 [degF] [employer] Diastolic blood pressure 64 mm[Hg] 64 mm[Hg] [employer] Systolic blood pressure 127 mm[Hg] 127 mm[Hg] O [employer] Oxygen saturation in Arterial blood by Pulse oximetry 98 % 98 % [facility] Respiratory rate 18 /min 18 /min [facility] Heart rate 93 /min 93 /min [facility] Body temperature 97.9 [degF] 97.9 [degF] [facility] Diastolic blood pressure 87 mm[Hg] 87 mm[Hg] [facility] Systolic blood pressure 132 mm[Hg] 132 mm[Hg] O [employer] Oxygen saturation in Arterial blood by Pulse oximetry 97 % 97 % [facility] Respiratory rate 18 /min 18 /min [facility] Heart rate 113 /min 113 /min [facility] Body temperature 101.2 [degF] 101.2 [degF] [facility] Diastolic blood pressure 87 mm[Hg] 87 mm[Hg] [facility] Systolic blood pressure 132 mm[Hg] 132 mm[Hg] O [employer] Oxygen saturation in Arterial blood by Pulse oximetry 97 % 97 % [facility] Respiratory rate 18 /min 18 /min [facility] Heart rate 113 /min 113 /min [facility] Body temperature 101.2 [degF] 101.2 [degF] [facility]
[2021-01-26] MEDS ORDERED: MIRT-60 PO (13:22)
[2021-01-26] MEDS ORDERED: METHADONE PO (13:22)
--- OUTSIDE RECORDS SUMMARY | 2021-01-26 13:57 | CCD ---
Author Author [facility] Organization [facility] Address Unknown Phone Unavailable Care Team Providers Care Oil Plant Operator Name Role Phone Lee, Nyack Nathalie Unavailable Unavailable Lee, Nyack Nathalie Unavailable Unavailable Lee, Nyack Nathalie Unavailable Unavailable Lee, Nyack Nathalie Unavailable Unavailable Lee, Nyack Nathalie Unavailable Unavailable Lee, Nyack Nathalie Unavailable Unavailable Lee, Nyack Nathalie Unavailable Unavailable Lee, Nyack Nathalie Unavailable Unavailable Lee, Nyack Nathalie Unavailable Unavailable Lee, Nyack Nathalie Unavailable Unavailable Devyn Dior MD Unavailable [...] is protected by Article 27-F of the [facility] Public Health law. If you continue you may have access to information: Regarding HIV / AIDS; Provided by facilities licensed or operated by the [facility] Office of Mental Health; or Provided by the [facility] Office for People With Developmental Disabilities. If such information is present, then the following [facility] mandated warning applies: This information has been [...] law may result in a fine or chcf sentence or both. A general authorization for the release of medical or other information is NOT sufficient authorization for further disc losure. Allergies and Adverse Reactions Type Description Substance Reaction Status Data Source(s ) Drug allergy No Known Allergies No Known Allergies [facility] Allergy to substance Allergy to substance Allergy to substance UNA ([facility]) Allergy to substance Allergy to substance Allergy to substance [facility]NA ([facility]) Allergy to substance Allergy to substance Allergy to substance [place] ([facility]) Family History Family Member Name Family Member Gender Family Member Status Date o f Status Description Data Source(s) Unknown Condition [facility] Unknown Condition [facility] Unknown Condition [facility] Unknown Condition [facility] Unknown Condition [facility] Encounters Encounter Providers Location Date Indications Data Source(s ) Outpatient Attender: SUDHEER seth 01/11/2021 11:15:00 AM EST [facility] (Ken Bravo MD) Outpatient Attender: SUDHEER seth 01/03/2021 11:15:00 AM EST [facility] (Ken Bravo MD) Nathalie Lee ADOLESCENT SPECIALIST-C: [address] [place] [address] [phone], Ph. Attender: Nathalie Lee [facility] Medical 12/29/2020 12:00:00 AM EST [facility] ([facility]) Outpatient Attender: SUDHEER SUAREZ Medical Buildin g 12/27/2020 09:30:00 AM EST [facility] (Ken Bravo MD) Outpatient Attender: SUDHEER SUAREZ Medical Buildin g 12/14/2020 01:00:00 PM EST [facility] (Ken Bravo MD) José Miguel Dior MD: [address] [place] [address] [phone], Ph. Attender: José Miguel Dior MD [facility] Medical 11/30/2020 12:00:00 AM EST [facility]NA ([facility]) José Miguel Dior MD: [address] [place] [address] [phone], Ph. Attender: José Miguel Dior MD [facility] Medical 11/30/2020 12:00:00 AM EST [facility]NA ([facility]) José Miguel Dior MD: [address] [place] [address] [phone], Ph. Attender: José Miguel Dior MD [facility] Medical 11/30/2020 12:00:00 AM EST [facility]NA ([facility]) Outpatient Attender: SUDHEER SUAREZ Medical Buildin g 11/08/2020 11:00:00 AM EST [facility] (Ken Bravo MD) Outpatient Attender: SUDHEER SUAREZ Medical Buildin g 11/03/2020 02:00:00 PM EST [facility] (Ken Bravo MD) Emergency Attender: Eliu Espinoza DO 2019 07:23:00 PM EDT - 04/11/2020 08:29:00 PM EDT [facility]Vomiting sever headache [facility]-Vomiting sever headache Patient discharged. Emergency Attender: NATHALIA BAIN DO 12/28 11:12:00 AM EST - 12/28/2019 12:50:00 PM EST [facility]/ hard to swallow, sore throat,hurts to urina [facility]/ hard to swallow, sore throat,hurt s to urina Patient discharged. Emergency Attender: Marko Andrews 12/24/2019 09:59:00 AM EST - 12/24/2019 10:57:00 AM EST [facility]/Headach,sore throat,bodyaches,fever [facility]Headach,sore throat,bodyaches,feve r Patient discharged. Immunizations Vaccine Date Status Description Data Source(s) COVID-19, mRNA, LNP-S, PF, 100 mcg/0.5 mL dose 12/29/2020 09 :29:39 AM EST completed .5 mL [place] ([facility]) COVID-19, mRNA, LNP-S, PF, 100 mcg/0.5 mL dose 11/30/2020 03 :52:50 PM EST completed .5 mL [place] ([facility]) COVID-19, mRNA, LNP-S, PF, 100 mcg/0.5 mL dose 11/30/2020 03 :52:50 PM EST completed .5 mL [place] ([facility]) COVID-19, mRNA, LNP-S, PF, 100 mcg/0.5 mL dose 11/30/2020 03 :52:50 PM EST completed .5 mL [facility]) Medications Medication Brand Name Start Date Product Form Dose Route Admi nistrative Instructions Pharmacy Instructions Status Indications Reaction Description Data Source(s) Prochlorperazine 5 MG Oral Tablet [Compazine] Prochlor perazine Maleate Prochlorperazine Maleate 04/11/2020 08:21:50 PM EDT TABLET 5 MG ORAL active [facility] Phenazopyridine hydrochloride 200 MG Oral Tablet Phenazopyri dine 12/28/2019 12:39:16 PM EST TABLET 200 MG ORAL completed [facility] Phenazopyridine hydrochloride 200 MG Oral Tablet Phenazopyri dine 12/28/2019 12:39:00 PM EST TABLET 200 MG ORAL active [facility] Lidocaine Hydrochloride 20 MG/ML Mucous Membrane Topic al Solution Lidocaine Hcl Lidocaine Hcl 12/28/2019 12:38:58 PM EST SOLUTION 5 ML MUCOUS MEMBRANE completed [facility] Cephalexin 500 MG Oral Capsule [Keflex] Cephalexin 12/28/19 12:38:50 PM EST CAPSULE 500 MG ORAL completed [facility] Lidocaine Hydrochloride 20 MG/ML Mucous Membrane Topic al Solution Lidocaine Hcl Lidocaine Hcl 12/28/2019 12:38:00 PM EST SOLUTION 5 ML MUCOUS MEMBRANE active [facility] Cephalexin 500 MG Oral Capsule [Keflex] Cephalexin 12/28/19 12:38:00 PM EST CAPSULE 500 MG ORAL [facility] Meth[facility]one Hydrochloride 5 MG Oral Tablet Methadone 11:30:50 AM EST TABLET 96 MG ORAL [facility] Methadone Hydrochloride 5 MG Oral Tablet Methadone 11:30:00 AM EST TABLET 96 MG ORAL active [facility] Prednisone 20 MG Oral Tablet Prednisone 12/24/2019 10:48:25 AM EST TA BLET 40 MG ORAL [facility] Ondansetron 4 MG Oral Tablet [Zofran] Ondansetron Hcl Ondans etron Hcl 12/24/2019 10:48:13 AM EST TABLET 4 MG ORAL completed [facility] Prednisone 20 MG Oral Tablet Prednisone 12/24/2019 10:48:00 AM EST TA BLET 40 MG ORAL completed [facility] Ondansetron 4 MG Oral Tablet [Zofran] Ondansetron Hcl Ondans etron Hcl 12/24/2019 10:48:00 AM EST TABLET 4 MG ORAL completed [facility] Prednisone 20 MG Oral Tablet Prednisone 12/24/2019 10:48:00 AM EST TA BLET 40 MG ORAL active [facility] Ondansetron 4 MG Oral Tablet [Zofran] Ondansetron Hcl Ondans etron Hcl 12/24/2019 10:48:00 AM EST TABLET 4 MG ORAL active [facility] methadone 03/31/2019 07:33:25 PM EDT 97 MG ORAL complet ed [facility] methadone 03/31/2019 07:33:00 PM EDT 97 MG ORAL complet ed [facility] Insurance Providers Payer name Policy type / Coverage type Policy ID Covered green party ID Covered green party's relationship to alfonso Policy Alfonso Plan Information LYNNE [id number] SP [id number] LYNNE [id number] SP [id number] SELF PAY ONLY [id number] SP [id number] SELF PAY LYNNE [id number] SP [id number] SELF PAY MEDICAID [facility] [id number] SP CR [id number] SELF PAY MEDICAID [facility] [id number] SP CR [id number] SELF PAY LYNNE [id number] SP [id number] SELF PAY LYNNE [id number] SP [id number] SELF PAY LYNNE [id number] SP [id number] SELF PAY LYNNE [id number] SP [id number] SELF PAY LYNNE [id number] SP [id number] SELF PAY LYNNE [id number] SP [id number] SELF PAY LYNNE [id number] SP [id number] SELF PAY LYNNE [id number] SP [id number] LYNNE I [id number] Self [id number] LYNNE CARE HEA [id number] S [id number] LYNNE CARE HEA UNAVAILABLE S UNAVA ILABLE LYNNE CARE HEA "" S "" LYNNE [id number] SP [id number] LYNNE [id number] SP [id number] MEDICAID [facility] [id number] SP CR [id number] MEDICAID [id number] Self [id number] [place] [id number] SP CR [id number] [place] [id number] SP CR [id number] SELF PAY UNAVAILABLE SP UNAVAILA BLE LYNNE [id number] SP [id number] [place]ID [place] [id number] SP CR [id number] SELF PAY - PENDING UNAVAILABLE SP UNAVAILABLE Problems, Conditions, and Diagnoses Code Display Name Description Problem Type Effective Dates Data Source(s) R51 Headache R51 - Headache Diagnosis 04/11/2020 07:23:00 P M EDT [facility] R11.10 Vomiting, unspecified R11.10 - Vomiting, unspecified D iagnosis 04/11/2020 07:23:00 PM EDT [facility] R30.9 Painful micturition, unspecified R30.9 - Painful micturition, unspecified Diagnosis 12/28/2019 11:12:00 AM EST [facility] J02.9 Acute pharyngitis, unspecified J02.9 - Acute pha ryngitis, unspecified Diagnosis 12/28/2019 11:12:00 AM EST [facility] R13.10 Dysphagia, unspecified R13.10 - Dysphagia, unspecified Diagnosis 12/28/2019 11:12:00 AM EST [facility] R50.9 Fever, unspecified R50.9 - Fever, unspecified Diagnosi s 12/24/2019 09:59:00 AM EST [facility] Results ID Date Data Source [id number] 01/03/2021 12:56:00 PM EST [facility] Name Value Range Interpretation Code Description Data Ebony rce(s) Supporting Document(s) SARS-CoV-2 (COVID-19) Negative [facility] This lab was ordered by [facility] and reported by [employer]. ID Date Data Source [id number] 01/03/2021 09:37:00 AM EST [facility] (Ken Bravo [...] 0 -1 Normal (applies to non-numeric results) MICHELLE (Ken Bravo MD) ID Date Data Source [id number] 01/03/2021 09:31:00 AM EST [facility] (Ken Bravo MD) Name Value Range Interpretation Code Description Data Ebony rce(s) Supporting Document(s) Hepatitis C virus RNA [Units/volume] (vi ral load) in Serum or Plasma by Probe with amplification Laboratory test result Abnormal (applies to non-numeric results) [facility] (Ken Bravo MD) Positive: HCV RNA Detected Performed at: [facility] [address] [place], [place] [id number] [address] Grinder Needle Tip: Juan Law MD, Phone: [phone] ID Date Data Source [id number] 01/03/2021 09:31:00 AM EST [facility] (Ken Bravo [...] will be sent to reference lab</content>
<content>Laboratory [facility], [address] [place] [address],</content>
<content>[place] [address] for Hep C RNA ROSA testing to [...] (Ken Bravo MD) ID Date Data Source [id number] 01/03/2021 09:31:00 AM EST [facility] (Ken Bravo [...] Little GFR Left</content>
<content>ESRD GFR <15 on LAB ASSOCIATE</content>
<content></content> Laboratory test finding (navigational concept) 4.7 meq/L 3 .5-5.1 Normal (applies to non-numeric results) [facility] (Ken Bravo MD) Laboratory test finding (navigational concept) 102 meq/L 9 8-107 Normal (applies to non-numeric results) [facility] (eKn Bravo MD) Laboratory test finding (navigational concept) 29 meq/L 2 1-32 Normal (applies to non-numeric results) FAUZIAENT (Ken Bravo MD) Laboratory test finding (navigational concept) 9.1 mg/dL 8 .5-10.1 Normal (applies to non-numeric results) [facility] (Ken [...] (Ken Bravo MD) ID Date Data Source [id number] 01/03/2021 09:31:00 AM EST [facility] (Ken Bravo [...] (Ken Bravo MD) ID Date Data Source [id number] 04/11/2020 07:43:00 [place] [address] HEALTH INFORMATION MANAGEMENT ED/UC Physician Report : [id number] Signed Patient: Ministerio Everett Acct:[id number] Unit: [id number] : 1990 Arrival Date: 04/11/20 Age/Sex: 29 [...] some anxiety Skin Skin exam: Dry, Intact, [place] and Warm Abdomen soft nondistended Medical Decision [...] rce(s) Supporting Document(s) ID Date Data Source [id number] 12/28/2019 12:35:00 PM [facility] - Laboratory RUN DATE: 12/31/[address] [place] [address] RUN TIME: 0853 Dr. Vern Dunne-Tariff Inspector REGIS # [id number] PATIENT: Ministerio Everett ACCT: [id number] LOC: [facility] U: [id number] : [birth year] AGE/SX: 29/F ROOM: RE12/28/[address]: Nathalia Bain DO STATUS: DEP ER BED: DIS: Copies To: Nathalia Bain DO PCP,No Specimen #: [id number] Ordered : 12/28/19 Collected : 12/28/19 By: KWABENA Received: 12/28/19 By: RRRADHAWN Source: URINE CC Specimen Description: Procedure Result [...] rce(s) Supporting Document(s) COLOR,UR DARK YELLOW YELLOW [facility] APPEARANCE,UR SLIGHTLY CLOUDY CLEAR [facility] PH,UR 6.0 5.0-8.0 [facility] SPECIFIC GRAVITY,UR 1.025 1.002-1.035 N [facility] PROTEIN,UR 30 MG/DL NEGATIVE A [facility] GLUCOSE, UR NEGATIVE MG/DL NEGATIVE [facility] KETONES,UR TRACE MG/DL NEGATIVE A [facility] OCCULT BLOOD,UR TRACE NEGATIVE A [facility] NITRATE,UR POSITIVE NEGATIVE A [facility] [employer] LEUKOCYTE ESTERASE ,UR TRACE NEGATIVE A [facility] BILIRUBIN,UR SMALL NEGATIVE A [facility] UROBILINOGEN,UR 1.0 EU MG/DL NEG-0-1.0 [facility] th ID Date Data Source [id number] 12/31/2019 08:53:00 AM EST [facility] - Laboratory RUN DATE: 12/31/19 [address] [facility] [address] RUN TIME: 08 Dr. Vern Dunne-Tariff Inspector REGIS # [id number] PATIENT: Ministerio Everett ACCT: [id number] LOC: [facility] U: [id number] : [birth year] AGE/SX: ROOM: RE12/28/[address]: Nathalia Bain DO STATUS: DEP BED: DIS: Copies To: Nathalia Bain DO PCP,No Specimen #: [id number] Ordered : 12/28/19 Collected : 12/28/19 By: [...] elise(s) Supporting Document(s) ID Date Data Source [id number] 12/28/2019 12:37:00 PM [facility] Name Value Range Interpretation Code Description Data Ebony e(s) Supporting Document(s) HCG,QUALITATIVE NEGATIVE [facility] Reference range is Negative To ensure best sensitivity, first morning void is recommended. Dilute, low specific gravity urine may give a falsely negative result. If is suspected, repeat testing with a new specimen 48-72 hours later. SPECIMEN TYPE URINE [facility] ID Date Data Source [id number] 12/28/2019 12:02:[address] [address] HEALTH INFORMATION MANAGEMENT ED/UC Physician Report : [id number] Signed Patient: Ministerio Everett Acct:[id number] Unit: [id number] : 1990 Arrival Date: 12/28/19 Age/Sex: 29 [...] [place] [facility] [place] [facility] [place]. given doxycycline there, pt never picked up [...] Normal Affect Skin Skin exam: Dry, Intact, [place] and Warm Course Vital Signs Vital signs: [...] 12/28/19 1202 Signed by: Claire Fraser 12/28/19 1240 Nathalia Bain DO 12/28/19 7304 Name Value Range Interpretation Code Description Data Ebony rce(s) Supporting Document(s) ID Date Data Source [id number] 12/28/2019 11:42:00 AM EST [facility] - Laboratory RUN DATE: 12/30/[address] [place] [address] RUN TIME: 0839 Dr. Vern Dunne-Tariff Inspector REGIS # [id number] PATIENT: Ministerio Everett ACCT: [id number] LOC: [facility] U: [id number] : [birth year] AGE/SX: ROOM: RE12/28/[address]: Nathalia Bain DO STATUS: DEP ER BED: DIS: Copies To: Nathalia Bain DO PCP,No Specimen #: [id number] Ordered : 12/28/19 Collected : 12/28/19 By: SHIRA Received: 12/28/19 By: SHIRA Source: THROAT Specimen Description: Procedure Result Verified THROAT CULT /STREP ONLY Final USUAL MAURICIO PLUS HEMOLYTIC STREPTOCOCCI MANY Organism 1 HEM STREPTOCOCCI NOT GRP A Name Value Range Interpretation Code Description Data Ebony rce(s) Supporting Document(s) RAPID STREP SCREEN NEGATIVE NEGATIVE [facility] Testing Performed by color immunochroma tographic assay using dual label technology. Culture Confirmation of Negative samples is Recommended. Infection due to Streptococci Group A cannot be Ruled Out in Negative tests since the Antigen Present Maybe Below the Detection Limit of the Test. ID Date Data Source [id number] 12/30/2019 08:39:00 AM [facility] - Laboratory RUN DATE: 12/30/19 [address] [facility] [address] RUN TIME: 838 Dr. Vern Dunne-Tariff Inspector REGIS # [id number] PATIENT: Ministerio Everett ACCT: [id number] LOC: [facility] U: [id number] : [birth year] AGE/SX: ROOM: RE12/28/[address]: Nathalia Bain DO STATUS: DEP BED: DIS: Copies To: Nathalia Bain DO PCP,No Specimen #: [id number] Ordered : 12/28/19 Collected : 12/28/19 By: SHIRA Received: 12/28/19 By: SHIRA Source: THROAT Specimen Description: Procedure Result Verified THROAT CULT /STREP ONLY Final USUAL MAURICIO PLUS HEMOLYTIC STREPTOCOCCI MANY Organism 1 HEM STREPTOCOCCI NOT GRP A Name Value Range Interpretation Code Description Data Ebony rce(s) Supporting Document(s) ID Date Data Source [id number] 12/28/2019 11:42:00 AM [facility] - Laboratory RUN DATE: 12/30/[address] [place] [address] RUN TIME: 838 Dr. Vern Dunne-Tariff Inspector REGIS # [id number] PATIENT: Ministerio Everett ACCT: [id number] LOC: [facility] U: [id number] : [birth year] AGE/SX: / ROOM: RE12/28/[address]: Nathalia Bain DO STATUS: DEP ER BED: DIS: Copies To: Nathalia Bain DO PCP,No Specimen #: [id number] Ordered : 12/28/19 Collected : 12/28/19 By: SHIRA Received: 12/28/19 By: SHIRA Source: THROAT Specimen Description: Procedure Result Verified THROAT CULT /STREP ONLY Final USUAL MAURICIO PLUS HEMOLYTIC STREPTOCOCCI MANY Organism 1 HEM STREPTOCOCCI NOT GRP A Name Value Range Interpretation Code Description Data Ebony rce(s) Supporting Document(s) SECOND SWAB RECEIVED YES Sonal graham ID Date Data Source [id number] 12/24/2019 10:19:[address] [address] HEALTH INFORMATION MANAGEMENT ED/UC Physician Report : [id number] Signed Patient: Ministerio Everett Acct:[id number] Unit: [id number] : 1990 Arrival Date: 12/24/19 Age/Sex: 29 [...] File>> Initializing User: Marko Andrews DO 12/24/19 1011 Signed by: Marko Andrews DO 12/24/19 1054 Name Value Range Interpretation Code Description Data Ebony rce(s) Supporting Document(s) ID Date Data Source [id number] 12/24/2019 10:27:00 AM EST [facility] - Laboratory RUN DATE: 12/26/[address] [place] [address] RUN TIME: 0803 Dr. Vern Dunne-Tariff Inspector REGIS # [id number] PATIENT: Ministerio Everett ACCT: [id number] LOC: [facility] U: [id number] : [birth year] AGE/SX: 29/F ROOM: RE12/24/[address]: Marko Andrews DO STATUS: DEP ER BED: DIS: Copies To: PCP,No Specimen #: [id number] Ordered : 12/24/19 Collected : 12/24/19 By: SHIRA Received: 12/24/19 By: SHIRA Source: THROAT Specimen Description: Procedure Result Verified THROAT CULT /STREP ONLY Final HEMOLYTIC STREPTOCOCCI SOME Organism 1 HEM STREPTOCOCCI NOT GRP A Name Value Range Interpretation Code Description Data Ebony rce(s) Supporting Document(s) RAPID STREP SCREEN NEGATIVE NEGATIVE [facility] Testing Performed by color immunochroma tographic assay using dual label technology. Culture Confirmation of Negative samples is Recommended. Infection due to Streptococci Group A cannot be Ruled Out in Negative tests since the Antigen Present Maybe Below the Detection Limit of the Test. ID Date Data Source [id number] 12/26/2019 08:03:00 AM [facility] - Laboratory RUN DATE: 12/26/[address] [place] [address] RUN TIME: 802 Dr. Vern Dunne-Tariff Inspector SATHISHMOHINI # [id number] PATIENT: Ministerio Everett ACCT: [id number] LOC: [facility] U: [id number] : [birth year] AGE/SX: ROOM: RE12/24/[address]: Marko Andrews DO STATUS: DEP ER BED: DIS: Copies To: PCP,No Specimen #: [id number] Ordered : 12/24/19 Collected : 12/24/19 By: SHIRA Received: 12/24/19 By: SHIRA Source: THROAT Specimen Description: Procedure Result Verified THROAT CULT /STREP ONLY Final HEMOLYTIC STREPTOCOCCI SOME Organism 1 HEM STREPTOCOCCI NOT GRP A Name Value Range Interpretation Code Description Data Ebony rce(s) Supporting Document(s) ID Date Data Source [id number] 12/24/2019 10:27:00 AM [facility] Laboratory RUN DATE: 12/26/[address] [place] [address] RUN TIME: 802 Dr. Vern Dunne-Tariff Inspector REGIS # [id number] PATIENT: Ministerio Everett ACCT: [id number] LOC: [facility] U: [id number] : [birth year] AGE/SX: 29/F ROOM: RE12/24/[address]: Marko Andrews DO STATUS: DEP ER BED: DIS: Copies To: PCP,No Specimen #: [id number] Ordered : 12/24/19 Collected : 12/24/19 By: SHIRA Received: 12/24/19 By: SHIRA Source: THROAT Specimen Description: Procedure Result Verified THROAT CULT /STREP ONLY Final HEMOLYTIC STREPTOCOCCI SOME Organism 1 HEM STREPTOCOCCI NOT GRP A Name Value Range Interpretation Code Description Data Ebony rce(s) Supporting Document(s) SECOND SWAB RECEIVED YES Sonal LEDEZMA Date Data Source [id number] 12/24/2019 10:27:00 AM EST [facility] Name Value Range Interpretation Code Description Data Ebony rce(s) Supporting Document(s) INFLUENZA A RAPID - UC NEGATIVE NEGATIVE [facility] Test Performed by Rapid Immunochromatog raphic Assay INFLUENZA B RAPID - UC NEGATIVE NEGATIVE [facility] Test Performed by [facility] [employer] [facility]phic Assay Procedure Social History Code Duration Value Status Description Data Source(s ) 04/11/2020 07:45:59 PM EDT Light Tobacco(<5 cig/day) c ompleted Light Tobacco(<5 cig/day) [facility] 04/11/2020 07:45:59 PM EDT Cigarettes completed Cigarette s [facility] Smoking 04/11/2020 07:45:00 PM EDT Current Light tobacco smoke r completed Current Light tobacco smoker [facility] 12/28/2019 12:02:00 PM EST Light Tobacco(<5 cig/day) c ompleted Light Tobacco(<5 cig/day) [facility] 12/28/2019 12:02:00 PM EST Cigarettes completed Cigarette s [facility] Smoking 12/28/2019 12:02:00 PM EST Current Light tobacco smoke r completed Current Light tobacco smoker [facility] 12/24/2019 10:23:00 AM EST Light Tobacco(<5 cig/day) c ompleted Light Tobacco(<5 cig/day) [facility] 12/24/2019 10:23:00 AM EST Cigarettes completed Cigarette s [facility] Smoking 12/24/2019 10:23:00 AM EST Current Light tobacco smoke r completed Current Light tobacco smoker [facility] Vital Signs ID Date Data Source UNK Name Value Range Interpretation Code Description Data Source(s) Diastolic blood pressure 56 mm[Hg] 56 mm[Hg] [facility] Systolic blood pressure 88 mm[Hg] 88 mm[Hg] [facility] Oxygen saturation in Arterial blood by Pulse oximetry 98 % 98 % [facility] Respiratory rate 22 /min 22 /min [facility] Heart rate 88 /min 88 /min [facility] Body temperature 98.8 [degF] 98.8 [degF] [facility] Diastolic blood pressure 64 mm[Hg] 64 mm[Hg] [facility] Systolic blood pressure 127 mm[Hg] 127 mm[Hg] O [facility] Oxygen saturation in Arterial blood by Pulse oximetry 98 % 98 % [facility] Respiratory rate 18 /min 18 /min [facility] Heart rate 93 /min 93 /min [facility] Body temperature 97.9 [degF] 97.9 [degF] [facility] Diastolic blood pressure 87 mm[Hg] 87 mm[Hg] [facility] Systolic blood pressure 132 mm[Hg] 132 mm[Hg] [facility] Oxygen saturation in Arterial blood by Pulse oximetry 97 % 97 % [facility] Respiratory rate 18 /min 18 /min [facility] [facility] Heart rate 113 /min 113 /min [facility] Body temperature 101.2 [degF] 101.2 [degF] [facility] Diastolic blood pressure 87 mm[Hg] 87 mm[Hg] [facility] Systolic blood pressure 132 mm[Hg] 132 mm[Hg] [facility] Oxygen saturation in Arterial blood by Pulse oximetry 97 % 97 % [facility] Respiratory rate 18 /min 18 /min [facility] Heart rate 113 /min 113 /min [facility] Body temperature 101.2 [degF] 101.2 [degF] [facility]
[2021-01-26 14:48] LABS: BASO % 0.5 % (0.0-1.0); EOS # 0.1 10^3/uL (0.0-0.5); EOS % 1.7 % (0.0-3.0); HEMATOCRIT 36.1 % (36.0-47.0); HEMOGLOBIN 11.3 g/dl (12.0-15.5); LYMPH # 3.5 10^3/uL (1.5-5.0); LYMPH % 41.7 % (24.0-44.0); MEAN CORPUSCULAR HEMOGLOBIN 26.6 pg (27.0-33.0); MEAN CORPUSCULAR HGB CONC 31.3 g/dl (32.0-36.5); MEAN CORPUSCULAR VOLUME 84.9 fl (80.0-96.0); MONO # 0.6 10^3/uL (0.0-0.8); MONO % 7.6 % (2.0-8.0); NEUTROPHILS % 47.9 % (36.0-66.0); PLATELET COUNT, AUTOMATED 218 10^3/uL (150-450); RED BLOOD COUNT 4.25 10^6/uL (4.00-5.40); WHITE BLOOD COUNT 8.4 10^3/uL (4.0-10.0)
[2021-01-26 14:50] LABS: APPEARANCE, URINE CLEAR (CLEAR); BACTERIA, URINE AUTO NEGATIVE (NEGATIVE); BILIRUBIN, URINE AUTO NEGATIVE (NEGATIVE); BLOOD, URINE BLOOD NEGATIVE (NEGATIVE); COLOR, URINE YELLOW (YELLOW); GLUCOSE, URINE (UA) AUTO NEGATIVE (NEGATIVE); KETONE, URINE AUTO NEGATIVE (NEGATIVE); LEUKOCYTE ESTERASE, URINE AUTO TRACE (NEGATIVE); NITRITE, URINE AUTO NEGATIVE (NEGATIVE); PROTEIN, URINE AUTO NEGATIVE (NEGATIVE); RBC, URINE AUTO 0 /HPF (0-3); SPECIFIC GRAVITY URINE AUTO 1.018 (1.002-1.035); SQUAMOUS EPITHELIAL CELL UR AU 1 /HPF (0-6); UROBILINOGEN, URINE AUTO 0.2 mg/dL (0.0-2.0); WBC, URINE AUTO 1 /HPF (0-3)
[2021-01-26 15:13] LABS: ERYTHROCYTE SEDIMENTATION RATE 22 mm/hr (0-20)
[2021-01-26 16:34] LABS: ALBUMIN 3.6 GM/DL (3.2-5.2); ALT/SGPT 101 U/L (12-78); BILIRUBIN,DIRECT < 0.1 MG/DL (0.0-0.2); BILIRUBIN,TOTAL 0.2 MG/DL (0.2-1.0); BLOOD UREA NITROGEN 23 MG/DL (7-18); CALCIUM LEVEL 8.3 MG/DL (8.5-10.1); CARBON DIOXIDE LEVEL 27 MEQ/L (21-32); CHLORIDE LEVEL 103 MEQ/L (98-107); CREATININE FOR GFR 0.88 MG/DL (0.55-1.30); GLOMERULAR FILTRATION RATE > 60.0 (>60); GLUCOSE, FASTING 91 MG/DL (70-100); NT-PRO BNP 18 PG/ML (<125); POTASSIUM SERUM 4.6 MEQ/L (3.5-5.1); RHEUMATOID FACTOR QUANT < 10.0 IU/ML (<15.0); SODIUM LEVEL 136 MEQ/L (136-145); TOTAL PROTEIN 7.1 GM/DL (6.4-8.2)
[2021-01-26 17:09] LABS: C REACTIVE PROTEIN QUANTITATIV 0.54 MG/DL (0.00-0.30)
[2021-01-26 17:20] VITALS: BP 101/52
[2021-02-01 01:07] LABS: ANTINUCLEAR ANTIBODIES DIRECT Negative (Negative); Lyme Disease IgG Ab 18 kDa Ban Absent (.); Lyme Disease IgG Ab 23 kDa Ban Present (.); Lyme Disease IgG Ab 28 kDa Ban Absent (.); Lyme Disease IgG Ab 30 kDa Ban Absent (.); Lyme Disease IgG Ab 39 kDa Ban Absent (.); Lyme Disease IgG Ab 41 kDa Ban Absent (.); Lyme Disease IgG Ab 45 kDa Ban Absent (.); Lyme Disease IgG Ab 58 kDa Ban Absent (.); Lyme Disease IgG Ab 66 kDa Ban Absent (.); Lyme Disease IgG Ab 93 kDa Ban Present (.); Lyme Disease IgG West Blot Int Negative (.); Lyme Disease IgG/IgM Antibodie <0.91 ISR (0.00-0.90); Lyme Disease IgM Ab 23 kDa Ban Absent (.); Lyme Disease IgM Ab 39 kDa Ban Absent (.); Lyme Disease IgM Ab 41 kDa Ban Absent (.); Lyme Disease IgM Ab Quantitati 0.88 index (0.00-0.79); Lyme Disease IgM West Blot Int Negative (.)
== END 2021-01-26 17:30 | disposition home or self-care (01) ==
LOC: M ED 13:08
DX: M79.89 Other specified soft tissue disorders (principal); R53.83 Other fatigue; R10.9 Unspecified abdominal pain

== ENCOUNTER → 2021-02-20 | Outpatient (CLI) | payer OTHER ==
[~2021-02-20] MED LIST: METHADONE PO; MIRT-60 PO
[2021-02-20 16:40] LABS: HEPATITIS B SURFACE ANTIBODY NEGATIVE (POSITIVE); HEPATITIS B SURFACE ANTIGEN NEGATIVE (NEGATIVE)
== END ==
LOC: M LAB 13:52
PROVIDERS: ATTEND Physician Assistant Medical
DX: B18.2 Chronic viral hepatitis C (principal); B16.9 Acute hepatitis B without delta-agent and without hepatic coma; B15.9 Hepatitis A without hepatic coma

== ENCOUNTER 2021-03-18 09:43 | Emergency (ER) | payer OTHER ==
[~2021-03-18] VITALS: Ht 165.1 cm; Wt 95.1 kg
[2021-03-18] MEDS ORDERED: NICO4GUM44 (09:49)
[2021-03-18] MEDS ORDERED: NICO21DI37 (09:49)
[2021-03-18] MEDS ORDERED: OMEP-218 (09:49)
[2021-03-18] MEDS ORDERED: SOFO1TAB (09:49)
[2021-03-18] MEDS ORDERED: METO10TA2 (09:49)
[2021-03-18 10:34] LABS: BASO % 0.4 % (0.0-1.0); EOS # 0.1 10^3/uL (0.0-0.5); EOS % 1.2 % (0.0-3.0); HEMATOCRIT 41.1 % (36.0-47.0); HEMOGLOBIN 13.1 g/dl (12.0-15.5); LYMPH % 31.7 % (24.0-44.0); MEAN CORPUSCULAR HEMOGLOBIN 26.7 pg (27.0-33.0); MEAN CORPUSCULAR HGB CONC 31.9 g/dl (32.0-36.5); MEAN CORPUSCULAR VOLUME 83.7 fl (80.0-96.0); MONO # 0.7 10^3/uL (0.0-0.8); MONO % 7.2 % (2.0-8.0); NEUTROPHILS # 5.7 10^3/uL (1.5-8.5); NEUTROPHILS % 59.1 % (36.0-66.0); PLATELET COUNT, AUTOMATED 181 10^3/uL (150-450); RED BLOOD COUNT 4.91 10^6/uL (4.00-5.40); WHITE BLOOD COUNT 9.6 10^3/uL (4.0-10.0)
[2021-03-18 11:00] LABS: ALT/SGPT 69 U/L (12-78); BILIRUBIN,DIRECT < 0.1 MG/DL (0.0-0.2); BILIRUBIN,TOTAL 0.5 MG/DL (0.2-1.0); BLOOD UREA NITROGEN 15 MG/DL (7-18); CARBON DIOXIDE LEVEL 27 MEQ/L (21-32); CHLORIDE LEVEL 101 MEQ/L (98-107); GLOMERULAR FILTRATION RATE > 60.0 (>60); GLUCOSE, FASTING 99 MG/DL (70-100); LIPASE 55 U/L (73-393); POTASSIUM SERUM 5.4 MEQ/L (3.5-5.1); SODIUM LEVEL 135 MEQ/L (136-145); TOTAL PROTEIN 8.1 GM/DL (6.4-8.2)
[2021-03-18] MEDS ORDERED: ONDANSETRON 4MG/2ML VIAL IV ONE (11:20)
--- NOTE | 2021-03-18 12:00 | REP ---
INDICATION: abd pain, n.v. COMPARISON: None. TECHNIQUE: Two views, supine views of the abdomen. FINDINGS: There is moderate stool in the proximal and distal colon. No small bowel dilation is seen. There is an IUD in place to the left of midline in the pelvis. Flank stripes are intact. Psoas margins are symmetric. There is no evidence of obstruction or significant ileus. IMPRESSION: Moderate stool. Otherwise negative KUB. IUD in place. <Electronically signed by Abhijeet Rodriguez > 03/18/21 1125
[2021-03-18 12:34] LABS: APPEARANCE, URINE CLEAR (CLEAR); BACTERIA, URINE AUTO NEGATIVE (NEGATIVE); BILIRUBIN, URINE AUTO NEGATIVE (NEGATIVE); BLOOD, URINE BLOOD NEGATIVE (NEGATIVE); COLOR, URINE YELLOW (YELLOW); GLUCOSE, URINE (UA) AUTO NEGATIVE (NEGATIVE); KETONE, URINE AUTO NEGATIVE (NEGATIVE); LEUKOCYTE ESTERASE, URINE AUTO TRACE (NEGATIVE); NITRITE, URINE AUTO NEGATIVE (NEGATIVE); PROTEIN, URINE AUTO NEGATIVE (NEGATIVE); RBC, URINE AUTO 0 /HPF (0-3); SPECIFIC GRAVITY URINE AUTO 1.014 (1.002-1.035); SQUAMOUS EPITHELIAL CELL UR AU 0 /HPF (0-6); UROBILINOGEN, URINE AUTO 0.2 mg/dL (0.0-2.0); WBC, URINE AUTO 0 /HPF (0-3)
[2021-03-18] MEDS ORDERED: MAGNESIUM CITRATE 300 ML BTL PO ONE (12:40)
[2021-03-18] MEDS ORDERED: KETOROLAC 30 MG/ML 1ML VIAL IV ONE (12:40)
[2021-03-18] MEDS ORDERED: GLYCERIN ADULT SUPP PR ONE (12:40)
[2021-03-18 12:54] LABS: BARBITURATES URINE NEGATIVE (NEGATIVE); BENZODIAZEPINES URINE NEGATIVE (NEGATIVE); CANNABINOIDS URINE NEGATIVE (NEGATIVE); COCAINE METABOLITE URINE NEGATIVE (NEGATIVE); METHADONE URINE POSITIVE (NEGATIVE); OPIATES URINE NEGATIVE (NEGATIVE); PHENCYCLIDINE URINE NEGATIVE (NEGATIVE)
[2021-03-18 12:58] LABS: AMPHETAMINES LEVEL URINE NEGATIVE (NEGATIVE)
[2021-03-18] MEDS ORDERED: COLA100C5 PO (13:55)
[2021-03-18 14:19] VITALS: BP 114/56
== END 2021-03-18 14:24 | disposition home or self-care (01) ==
LOC: M ED 09:43
DX: R10.9 Unspecified abdominal pain (principal); R11.2 Nausea with vomiting, unspecified; K59.00 Constipation, unspecified; B19.20 Unspecified viral hepatitis C without hepatic coma; F41.9 Anxiety disorder, unspecified; Z97.5 Presence of (intrauterine) contraceptive device; Z79.899 Other long term (current) drug therapy
CPT/HCPCS: 74018; 80048; 80076; 80307; 81001; 83690; 84702; 85025; 87086; 96374; 96375; 99284; J1885; J2405

== ENCOUNTER → 2021-04-07 | Outpatient (CLI) | payer OTHER ==
[~2021-04-07] MED LIST changes: +COLA100C5 PO; +METO10TA2; +NICO21DI37; +NICO4GUM44; +OMEP-218; +SOFO1TAB
[2021-04-07 12:33] LABS: BASO % 0.4 % (0.0-1.0); EOS # 0.1 10^3/uL (0.0-0.5); EOS % 1.3 % (0.0-3.0); HEMATOCRIT 37.9 % (36.0-47.0); HEMOGLOBIN 11.8 g/dl (12.0-15.5); LYMPH # 2.9 10^3/uL (1.5-5.0); LYMPH % 38.8 % (24.0-44.0); MEAN CORPUSCULAR HEMOGLOBIN 26.3 pg (27.0-33.0); MEAN CORPUSCULAR HGB CONC 31.1 g/dl (32.0-36.5); MEAN CORPUSCULAR VOLUME 84.6 fl (80.0-96.0); MONO # 0.4 10^3/uL (0.0-0.8); MONO % 5.6 % (2.0-8.0); NEUTROPHILS % 53.5 % (36.0-66.0); PLATELET COUNT, AUTOMATED 144 10^3/uL (150-450); RED BLOOD COUNT 4.48 10^6/uL (4.00-5.40); WHITE BLOOD COUNT 7.5 10^3/uL (4.0-10.0)
[2021-04-07 14:15] LABS: ALT/SGPT 48 U/L (12-78); BILIRUBIN,TOTAL 0.2 MG/DL (0.2-1.0); BLOOD UREA NITROGEN 17 MG/DL (7-18); CARBON DIOXIDE LEVEL 30 MEQ/L (21-32); CHLORIDE LEVEL 100 MEQ/L (98-107); CREATININE FOR GFR 0.84 MG/DL (0.55-1.30); GLOMERULAR FILTRATION RATE > 60.0 (>60); GLUCOSE, FASTING 96 MG/DL (70-100); HEPATITIS A ANTIBODY IGM NEGATIVE (NEGATIVE); HEPATITIS B CORE ANTIBODY IGM NEGATIVE (NEGATIVE); HEPATITIS B SURFACE ANTIGEN NEGATIVE (NEGATIVE); SODIUM LEVEL 137 MEQ/L (136-145); TOTAL PROTEIN 7.5 GM/DL (6.4-8.2)
[2021-04-07 14:16] LABS: HEPATITIS C VIRUS ABY INDEX > 11.0 INDEX (<0.8)
[2021-04-07 17:02] LABS: APPEARANCE, URINE CLEAR (CLEAR); BACTERIA, URINE AUTO NEGATIVE (NEGATIVE); BILIRUBIN, URINE AUTO NEGATIVE (NEGATIVE); BLOOD, URINE BLOOD 1+ (NEGATIVE); COLOR, URINE YELLOW (YELLOW); GLUCOSE, URINE (UA) AUTO NEGATIVE (NEGATIVE); KETONE, URINE AUTO NEGATIVE (NEGATIVE); LEUKOCYTE ESTERASE, URINE AUTO NEGATIVE (NEGATIVE); NITRITE, URINE AUTO NEGATIVE (NEGATIVE); PROTEIN, URINE AUTO NEGATIVE (NEGATIVE); RBC, URINE AUTO 1 /HPF (0-3); SQUAMOUS EPITHELIAL CELL UR AU 0 /HPF (0-6); UROBILINOGEN, URINE AUTO 0.2 mg/dL (0.0-2.0); WBC, URINE AUTO 1 /HPF (0-3)
== END ==
LOC: M LAB 11:52
PROVIDERS: ATTEND Physician Assistant Medical
DX: Z02.2 Encounter for examination for admission to residential institution (principal)

== ENCOUNTER → 2021-04-10 | Outpatient (CLI) | payer OTHER ==
[2021-04-10 15:04] LABS: ALT/SGPT 43 U/L (12-78); BILIRUBIN,DIRECT < 0.1 MG/DL (0.0-0.2); BILIRUBIN,TOTAL 0.3 MG/DL (0.2-1.0); TOTAL PROTEIN 7.4 GM/DL (6.4-8.2)
[2021-04-10 15:10] LABS: HEPATITIS B SURFACE ANTIBODY POSITIVE (POSITIVE)
[2021-04-11 12:08] LABS: HEPATITIS C QUANTITATION <15 IU/mL (.)
== END ==
LOC: M LAB 13:39
PROVIDERS: ATTEND Internal Medicine Infectious Disease
DX: B18.2 Chronic viral hepatitis C (principal)

== ENCOUNTER → 2021-04-27 | Outpatient (REF) | payer OTHER ==
[2021-04-27 15:56] LABS: FREE THYROXINE INDEX 2.5 % (1.3-4.8); THYROID STIMULATING HORMONE 9.23 uIU/ML (0.358-3.740); THYROXINE (T4) 8.9 UG/DL (4.5-12.0)
== END ==
LOC: M PLALAB 15:03
PROVIDERS: ATTEND Physician Assistant Medical
DX: R53.83 Other fatigue (principal)

== ENCOUNTER → 2021-05-30 | Outpatient (CLI) | payer MEDICAID, OTHER | LOC: M LAB 12:52 | PROVIDERS: ATTEND Family Medicine | DX: Z79.891 Long term (current) use of opiate analgesic (principal) | CPT/HCPCS: 36415; G0480 ==

== ENCOUNTER → 2021-05-31 | Outpatient (CLI) | payer MEDICAID | LOC: M PLALAB 08:36 | PROVIDERS: ATTEND Family Medicine | DX: Z79.891 Long term (current) use of opiate analgesic (principal) | CPT/HCPCS: 36415; G0480 ==